=== PATIENT | male | born 1970 | race Caucasian/White ===

== ENCOUNTER → 2019-05-18 09:31 | Outpatient (CLI) | payer OTHER, SELFPAY ==
[2019-05-18 12:15] LABS: Absolute Lymphocyte Count 1.94 X10^3/uL (0.83-4.51); Absolute Neutrophil Count 2.7 X10^3/uL (2.0-7.7); Basophil# 0.03 X10^3/uL; Basophil% 0.6 % (0-1); Eosinophil# 0.07 X10^3/uL; Eosinophils% 1.3 % (0-5); Hematocrit 47.6 % (40-54); Hemoglobin 15.6 g/dL (13.0-16.5); Lymphocyte # 1.94 X10^3/ul (4.0); Lymphocyte % 36.6 % (19-41); Mean Corp Hgb Conc 32.8 g/dL (32-36); Mean Corpuscular Hgb 29.9 pg (27.0-32.0); Mean Corpuscular Volume 91.2 fL (80-94); Mean Platelet Vol. 10.4 fl (6.2-12.0); Monocyte# 0.54 X10^3/uL; Monocyte% 10.2 % (0-10); NRBC Flagged by Analyzer 0 % (0-5); Neutrophil # 2.71 X10^3/uL (2.7-7.7); Neutrophil % 51.1 % (47-70); Platelet Count 259 K/mm3 (150-450); RBC Distribution Width CV 13.2 % (11.6-14.6); RBC Distribution Width SD 44.2 fl (35.1-43.9); Red Blood Count 5.22 M/mm3 (4.6-6.2); White Blood Count 5.3 K/mm3 (4.4-11.0)
[2019-05-18 12:43] LABS: ALB/GLOB Ratio 1.2 RATIO (0.9-2.4); AST(SGOT) 39 U/L (15-37); Alanine Aminotransfer ALT/SGPT 39 U/L (16-61); Albumin, Serum 4.2 g/dL (3.2-5.0); Alkaline Phosphatase 58 U/L (45-117); Anion Gap 6 (5-15); BUN 19 mg/dL (7-18); BUN/Creat Ratio 18.6 RATIO (10-20); Calcium,Total 9.1 mg/dL (8.5-10.1); Chloride 110 mmol/L (98-107); Cholesterol 185 mg/dL (200); Creatinine, Serum 1.02 mg/dL (0.70-1.30); EST Glomerular Filtration Rate 83 mL/min (>60); Est Glom Filt Rate - Afr Amer 100 mL/min (>60); Globulin 3.5 g/dL (2.2-4.2); Glucose 90 mg/dL (74-106); High Density Lipoprotein 57 mg/dL; Potassium 4.4 mmol/L (3.5-5.1); Protein, Total 7.7 g/dL (6.4-8.2); Sodium Level 143 mmol/L (136-145); Thyroid Stim Hormone (TSH) 1.98 uIU/mL (0.358-3.74); Triglycerides 114 mg/dL; Very Low Density Lipoprotein 23 mg/dL (5-40)
== END ==
PROVIDERS: PCP Family Medicine; Referring Provider Family Medicine; Visit Provider Family Medicine
DX: Z00.00 Encounter for general adult medical examination without abnormal findings (principal)
CPT/HCPCS: 36415; 80053; 80061; 84443; 85025

== ENCOUNTER → 2021-07-08 | Outpatient (CLI) | payer OTHER, SELFPAY ==
[2021-07-08 10:20] LABS: Absolute Neutrophil Count 2.8 X10^3/uL (2.0-7.7); Basophil# 0.03 X10^3/uL; Basophil% 0.6 % (0-1); Eosinophil# 0.11 X10^3/uL; Eosinophils% 2.1 % (0-5); Hematocrit 47.7 % (40-54); Hemoglobin 16.2 g/dL (13.0-16.5); Lymphocyte % 32.7 % (19-41); Mean Corpuscular Hgb 30.7 pg (27.0-32.0); Mean Corpuscular Volume 90.3 fL (80-94); Mean Platelet Vol. 10.6 fl (6.2-12.0); Monocyte# 0.52 X10^3/uL; NRBC Flagged by Analyzer 0 % (0-5); Neutrophil # 2.83 X10^3/uL (2.7-7.7); Neutrophil % 54.4 % (47-70); Platelet Count 253 K/mm3 (150-450); RBC Distribution Width CV 12.7 % (11.6-14.6); RBC Distribution Width SD 41.7 fl (35.1-43.9); Red Blood Count 5.28 M/mm3 (4.6-6.2); White Blood Count 5.2 K/mm3 (4.4-11.0)
[2021-07-08 10:54] LABS: ALB/GLOB Ratio 1.2 RATIO (0.9-2.4); AST(SGOT) 19 U/L (15-37); Alanine Aminotransfer ALT/SGPT 23 U/L (16-61); Alkaline Phosphatase 61 U/L (45-117); Anion Gap 6 (5-15); BUN 19 mg/dL (7-18); BUN/Creat Ratio 17.8 RATIO (10-20); Chloride 110 mmol/L (98-107); Cholesterol 152 mg/dL (200); Creatinine, Serum 1.07 mg/dL (0.70-1.30); EST Glomerular Filtration Rate 78 mL/min (>60); Est Glom Filt Rate - Afr Amer 94 mL/min (>60); Globulin 3.2 g/dL (2.2-4.2); Glucose 111 mg/dL (74-106); High Density Lipoprotein 51 mg/dL; Potassium 3.8 mmol/L (3.5-5.1); Protein, Total 7.2 g/dL (6.4-8.2); Sodium Level 142 mmol/L (136-145); Thyroid Stim Hormone (TSH) 1.43 uIU/mL (0.358-3.74); Triglycerides 119 mg/dL; Very Low Density Lipoprotein 24 mg/dL (5-40)
[2021-07-09 11:48] LABS: Hemoglobin A1c 5.5 % (3.8-5.6)
== END | disposition home or self-care (01) ==
LOC: MTLAB 08:55
PROVIDERS: PCP Family Medicine; Referring Provider Family Medicine; Visit Provider Family Medicine
DX: Z00.00 Encounter for general adult medical examination without abnormal findings (principal); R73.09 Other abnormal glucose
CPT/HCPCS: 36415; 80053; 80061; 83036; 84443; 85025

== ENCOUNTER 2021-09-09 06:56 | Day surgery (SDC) | payer OTHER, SELFPAY ==
[2021-09-09] VITALS (10 sets, daily range): BP systolic 106–120; BP diastolic 72–91; PULSE 62–77; RESP 14–16; TEMP 36.3–36.8; O2SAT 94–100; BMI 27.9
--- NOTE | 2021-09-09 07:39 | HP.PCM_ITS ---
[facility] - General General Date of Service: 09/09/21 Chief Complaint: Screening for intestinal cancer HPI Narrative ELDA ISSA, is a 51 M who presents who presents via open access for screening colonoscopy today. He has not had one for multiple years. This is age 51 screening event. No abdominal pain. No bright red blood per rectum or melena. No family history of colon cancer. He presents via open access today. [facility] Medical History (Updated 09/04/21 @ 12:27 by Erica Bond) Non-smoker Seasonal allergies Wears glasses Home Medications loratadine 10 mg tablet (Claritin) 10 mg PO DAILY 07/22/21 [History Last Taken Unknown] Allergy/AdvReac Type Severity Reaction Status Date / Time pollen Allergy Intermediate runny Uncoded 09/09/21 07:24 eyes,nose Family History (Updated 07/22/21 @ 14:10 by Shanon Cadena) Mother Hypertension Surgical History (Updated 07/22/21 @ 14:09 by Shanon Cadena) History of cholecystectomy History of left inguinal hernia repair Social History (Updated 07/22/21 @ 14:15 by Shanon Cadena) household members: spouse and children current occupational status: employed Smoking Status: Never smoker substance use type: does not use ROS Constitutional Constitutional: Reports systems reviewed and no addt'l complaints, except as documented Cardiovascular Cardiovascular: Denies chest pain Respiratory/Chest Respiratory/Chest: Denies shortness of breath at rest Gastrointestinal Gastrointestinal: Denies abdominal pain, change in bowel habits, hematochezia or melena Vital Signs Vital Signs Vital Signs: 09/09/21 07:25 09/09/21 07:25 Temperature 97.4 F L Temperature Source Temporal Pulse Rate 73 Respiratory Rate 16 Respiratory Pattern Normal Blood Pressure 114/72 Blood Pressure Mean 86 Blood Pressure Source Monitor Blood Pressure Position Semi-Fowlers Blood Pressure Location Left Arm Pulse Ox 97 Oxygen Delivery Method Room Air Weight Weight: 167 lb 12.348 oz Body Mass Index (BMI) 27.9 Physical Exam Const alert, oriented x3 and no apparent distress General Appearance: cooperative and comfortable Eyes General Eye: normal appearance of both eyes Neck General: normal visual inspection Chest inspection of chest normal Resp Effort and Inspection: able to speak in complete sentences and symmetric chest movement Auscultation: clear to auscultation bilaterally Cardio regular rate and regular rhythm GI soft to palpation, non-tender and non-distended Extremity no calf tenderness Neuro oriented x3 Psych thought process normal Assessment & Plan Assessment/Plan (1) Encounter for screening for malignant neoplasm of colon: PLAN: Plan to proceed with a screening colonoscopy today with possible biopsy or polypectomy as indicated. He is aware of the technique, benefit, risk, alternatives. He has had an opportunity to ask and have questions answered. He presents via open access. We will proceed as noted. Conrad Demarco M.D., F.A.C.S.
[2021-09-09] MEDS: Lactated Ringers 1,000 ML 15 ML IV (07:46)
[2021-09-09] MEDS: Midazolam 5 MG/ML Syringe (08:20)
[2021-09-09] MEDS: DiphenhydrAMINE 50 MG/ML Syringe (08:20)
--- NOTE | 2021-09-09 08:38 | OP.COLON_ITS ---
Patient Name: Sam Sen Procedure Date: 09/09/2021 8:16 AM Date of : 1970 Age: 51 Procedure: Colonoscopy Indications: Screening for colorectal malignant neoplasm Providers: Conrad Demarco MD Medicines: Midazolam 3 mg IV, Meperidine 100 mg IV, Diphenhydramine 12.5 mg IV Patient Profile: Last Colonoscopy: more than 10 years ago. Complications: No immediate complications. Procedure: Pre-Anesthesia Assessment: - Prior to the procedure, a History and Physical was performed, and patient medications and allergies were reviewed. The patient's tolerance of previous anesthesia was also reviewed. The risks and benefits of the procedure and the sedation options and risks were discussed with the patient. All questions were answered, and informed consent was obtained. Prior Anticoagulants: The patient has taken no previous anticoagulant or antiplatelet agents. ASA Grade Assessment: II - A patient with mild systemic disease. After reviewing the risks and benefits, the patient was deemed in satisfactory condition to undergo the procedure. After I obtained informed consent, the scope was passed under direct vision. Throughout the procedure, the patient's blood pressure, pulse, and oxygen saturations were monitored continuously. The Colonoscope was introduced through the anus and advanced to the cecum, identified by appendiceal orifice and ileocecal valve. The colonoscopy was performed without difficulty. The patient tolerated the procedure well. The quality of the bowel preparation was good. The ileocecal valve and the appendiceal orifice were photographed. Moderate Sedation: Moderate (conscious) sedation was personally administered by the endoscopist. The following parameters were monitored: oxygen saturation, heart rate, blood pressure, and response to care. Total physician intraservice time was 15 minutes. Scope In: 8:23:10 AM Scope Withdrawal Time 0 hours 8 minutes 2 seconds Scope Out: 8:34:25 AM Total Procedure Duration Time 0 hours 11 minutes 15 seconds Findings: The digital rectal exam findings include non-thrombosed internal hemorrhoids and internal hemorrhoids that prolapse with straining, but spontaneously regress to the resting position (Grade II). Pertinent negatives include normal prostate (size, shape, and consistency). Scattered diverticula were found in the sigmoid colon. The exam was otherwise without abnormality. Impression: - Non-thrombosed internal hemorrhoids and internal hemorrhoids that prolapse with straining, but spontaneously regress to the resting position (Grade II) found on digital rectal exam. - Diverticulosis in the sigmoid colon. - The examination was otherwise normal. - No specimens collected. Recommendation: - Discharge patient to home. - Resume previous diet. - Continue present medications. - Repeat colonoscopy in 10 years for screening purposes. Procedure Code(s): --- Professional --- 26215, Colonoscopy, flexible; diagnostic, including collection of specimen(s) by brushing or washing, when performed (separate procedure) 43752, 59, Moderate sedation services provided by the same physician or other qualified health child caregiver private home performing the diagnostic or therapeutic service that the sedation supports, requiring the presence of an independent trained observer to assist in the monitoring of the patient's level of consciousness and physiological status; initial 15 minutes of intraservice time, patient age 5 years or older Diagnosis Code(s): --- Professional --- Z12.11, Encounter for screening for malignant neoplasm of colon K64.1, Second degree hemorrhoids K57.30, Diverticulosis of large intestine without perforation or abscess without bleeding CPT copyright 2017 [employer]. All rights reserved. The codes documented in this report are preliminary and upon saddle stitcher review may be revised to meet current compliance requirements. Conrad Demarco MD 09/09/2021 8:38:30 AM This report has been signed electronically. Number of Addenda: 0 Note Initiated On: 09/09/2021 8:16 AM
--- NOTE | 2021-09-09 08:39 | OP.CCLET_ITS ---
09/09/2021 Kris Burnham [address] [place] [address] Re : Colonoscopy procedure for Sam Sen Dear Dr. Burnham This procedure was performed on Thursday, September 09, 2021. My impressions and recommendations are as follows: Impressions : - Non-thrombosed internal hemorrhoids and internal hemorrhoids that prolapse with straining, but spontaneously regress to the resting position (Grade II) found on digital rectal exam. - Diverticulosis in the sigmoid colon. - The examination was otherwise normal. - No specimens collected. Recommendations : - Discharge patient to home. - Resume previous diet. - Continue present medications. - Repeat colonoscopy in 10 years for screening purposes. My findings are described in the full procedure note, which is enclosed. If I can be of further assistance, please feel free to contact me at Doctor phone number(s): Work: . Sincerely, Conrad Demarco MD 09/09/2021 8:38:30 AM This report has been signed electronically.
== END 2021-09-09 09:24 | disposition home or self-care (01) ==
LOC: EN 07:01 → AC 07:01
PROVIDERS: PCP Family Medicine; Referring Provider Family Medicine; Visit Provider Surgery
PROC: 0DJD8ZZ Inspection of Lower Intestinal Tract, Via Natural or Artificial Opening Endoscopic (ICD-10-PCS; CPT 45378; principal; 2021-09-09 07:55)
DX: Z12.11 Encounter for screening for malignant neoplasm of colon (principal); K64.1 Second degree hemorrhoids; K57.30 Diverticulosis of large intestine without perforation or abscess without bleeding
CPT/HCPCS: 45378; 99152; 99153; J7120

== ENCOUNTER 2022-12-22 01:15 | Emergency (ER) | payer OTHER, SELFPAY ==
[2022-12-22 01:16] VITALS: BP 137/94; PULSE 75; RESP 20; TEMP 35.7; O2SAT 99; BMI 29.5
--- NOTE | 2022-12-22 01:31 | CT_ITS ---
INDICATION: Kidney Stone. Right flank pain tonight. EXAMINATION: CT ABDOMEN AND PELVIS WITHOUT CONTRAST TECHNIQUE: Helically acquired images were obtained of the abdomen and pelvis without IV contrast. 2-D reconstructions reviewed. A radiation dose optimization technique was used for this scan. IV Contrast dosage and agent: None Oral contrast: None COMPARISON: None. FINDINGS: LOWER CHEST: No acute findings within the imaged lung bases. Heart size within normal limits. LIVER: Small simple cyst within posterior right lobe requiring no additional follow-up. No concerning lesion. GALLBLADDER AND BILIARY TREE: Status post cholecystectomy. No significant biliary ductal dilation. PANCREAS: No discrete mass or peripancreatic edema. SPLEEN: Normal size without discrete mass. ADRENAL GLANDS: Unremarkable. KIDNEYS AND URETERS: Tiny 1 to 2 mm stones within lower pole right kidney. Mild right hydronephrosis and proximal hydroureter secondary to 3.5 mm craniocaudal length proximal ureteral stone. No discrete renal mass. PERITONEUM: No significant free peritoneal fluid. No free air detected. RETROPERITONEUM: No retroperitoneal mass or pathologic fluid collection. BOWEL: No evidence of acute appendicitis. No bowel obstruction or significant bowel thickening. Scattered colonic diverticula. No focal inflammatory change. LYMPH NODES: No enlarged mesenteric or retroperitoneal lymph nodes. VESSELS: No acute findings. No abdominal aortic aneurysm. URINARY BLADDER: Unremarkable as visualized. REPRODUCTIVE ORGANS: No pelvic masses. ABDOMINAL WALL: Small bilateral inguinal fat hernias. BONES: Chronic bilateral L5 pars defects with secondary grade 1 anterolisthesis of L5 over S1. CT/Abdomen/Pelvis without Cont IMPRESSION: 1. Right nephrolithiasis with mild obstructive uropathy secondary to 3.5 mm proximal ureteral stone. 2. Mild colonic diverticulosis with no evidence of diverticulitis. 3. Other nonurgent findings within body of report. Electronically Signed: Prakash Way MD at 2:51 EST ,
--- NOTE | 2022-12-22 01:34 | EX.ED.GUMALE ---
HPI History of Present Illness Chief Complaint: Flank Pain Informant: patient Narrative Narrative: Sudden right-sided flank pain rating to the testicles 90 minutes prior to arrival. No nausea or vomiting. Has not urinated since the pain. There is no prior dysuria. No fevers. No history of kidney stones. Denies any allergies. Denies history of kidney disease. Prior similar symptoms: No PFSH PFSH Medical History Non-smoker Seasonal allergies Wears glasses Home Medications loratadine 10 mg tablet (Claritin) 10 mg PO DAILY 07/22/21 [History Last Taken Unknown] ciprofloxacin HCl 500 mg tablet 500 mg PO BID #14 TABLETS 12/22/22 [Rx Last Taken Unknown] clobetasol 0.05 % scalp solution 1 applic topical DAILY 12/22/22 [History Last Taken Unknown] ibuprofen 600 mg tablet 600 mg PO Q6H PRN PRN pain #20 TABLETS 12/22/22 [Rx Last Taken Unknown] ondansetron 4 mg disintegrating tablet 4 mg PO Q8H PRN PRN Nausea #10 tabs 12/22/22 [Rx Last Taken Unknown] oxycodone-acetaminophen 5 mg-325 mg tablet 1 tab PO Q6H PRN PRN Pain 3 days #12 TABLETS 12/22/22 [Rx Last Taken Unknown] tamsulosin 0.4 mg capsule 0.4 mg PO DAILY #7 CAPSULES 12/22/22 [Rx Last Taken Unknown] triamcinolone acetonide 0.1 % topical ointment 1 applic topical BID 12/22/22 [History Last Taken Unknown] Allergy/AdvReac Type Severity Reaction Status Date / Time pollen extracts Allergy Intermediate Other Verified 12/22/22 01:20 Family History (Updated 07/22/21 @ 14:10 by Shanon Cadena) Mother Hypertension Surgical History History of cholecystectomy History of left inguinal hernia repair Social History (Updated 07/22/21 @ 14:15 by Shanon Cadena) household members: spouse and children current occupational status: employed Smoking Status: Never smoker substance use type: does not use ROS ROS ED Constitutional Constitutional ED: Denies chills, fever(s) or sweats Eyes Eyes: Denies change in vision ENT ENT ED: Denies dysphagia or sore throat Cardiovascular Cardiovascular: Denies chest pain, leg edema, palpitations or racing heartbeat Respiratory/Chest Respiratory/Chest: Denies cough, dyspnea or dyspnea on exertion Gastrointestinal Gastrointestinal: Denies abdominal pain, diarrhea, nausea or vomiting Genitourinary Genitourinary ED: Denies dysuria, hematuria or urinary frequency Musculoskeletal Musculoskeletal: Reports back pain; Denies extremity pain or neck pain Integumentary Denies rash or wounds Neurologic Neurologic: Denies headache(s), paresthesias or weakness EXAM Physical Exam Const Vital Signs: 12/22/22 01:16 12/22/22 03:15 Temperature 96.3 F L Temperature Source Temporal Pulse Rate 75 92 Respiratory Rate 20 H 16 Blood Pressure 137/94 H 133/84 H Blood Pressure Mean 108 100 Pulse Ox 99 98 Oxygen Delivery Method Room Air Room Air Positive well nourished and well developed Constitutional Narrative: Uncomfortable unable to lay still in bed. General Appearance ED: well developed HEENT Reports moist mucous membranes normocephalic and atraumatic Eyes PERRL, EOMs intact bilaterally and conjunctivae normal General Eye ED: Yes normal appearance of both eyes Neck no lymphadenopathy and supple General: Negative for tenderness Chest Wall Chest: Negative for tenderness Resp normal respiratory effort and normal air movement Effort and Inspection: symmetric chest movement; Negative for respiratory distress Cardio regular rate, regular rhythm and no murmurs Peripheral Pulses: pulses 2+ throughout GI normal to inspection, nondistended, normoactive bowel sounds and non-tender Palpation: Negative for guarding or rebound tenderness present Back/Spine no CVA tenderness and no thoracic nor lumbar tenderness Back/Spine Narrative: No rash. Extremity normal to inspection General Extremety ED: Negative for edema or tenderness General Extremity: Negative for edema Neuro oriented x3 and no sensory deficits noted Sensorium / Orientation: awake and alert Skin no rashes or lesions noted and no wounds MDM MDM MDM Narrative Medical decision making narrative: Interventions / MDM: Differential diagnosis: Diagnosis considered but do not suspect: N/A My EKG interpretation: N/A Imaging independently reviewed and interpreted by myself: CT abdomen pelvis: Right mid ureteral stent with hydroureter and periureteral stranding stone proximally to 3 mm. External documents reviewed: N/A Test considered but not ordered:N/A ED course: Vital stable presenting with renal colic symptoms. Renal stone protocol initiated. IV established. Morphine Toradol Zofran and fluids started. CT scan with basic labs and urine. 0225: Pain more controlled at this time. Her white point to creatinine 1.2. Your notes blood, 25 leukocytes with 1+ bacteria. Urine culture sent. Review of CT scan notes a mid ureteral cyst stone. Awaiting final read. Rocephin IV ordered for antibiotics. 0305: Pain a lot more controlled. CT scan read by radiology 3.5 mm ureteral stone. Pain reported 5 out of 10. Will redose pain medicines. Patient also started on Flomax. Pain controlled with medications. Urine strainer sent home with patient. Meds to bed with prescriptions for symptom control while antibiotics. Discussed strict return precautions the patient otherwise given outpatient follow-up with urology. All questions were answered. Re-evaluation: stable Disposition discussed with patient/family/significant other: Patient Case discussed with consulting clinician: N/A This note was generated with [employer] dictation software. It may contain incorrect words, spelling, and punctuation that were not noted in checking the note before signing. Lab Data Attestation: I reviewed the patient's lab results. Labs: Laboratory Results - last 24 hr 12/22/22 12/22/22 01:20 01:57 WBC 12.2 H RBC 4.95 Hgb 15.1 Hct 44.9 MCV 90.7 MCH 30.5 MCHC 33.6 RDW Std Deviation 45.3 H RDW Coeff of Kristian 13.7 Plt Count 310 MPV 10.3 Immature Gran % (Auto) 0.200 Neut % (Auto) 31.7 L Lymph % (Auto) 56.7 H [place] % (Auto) 9.4 Eos % (Auto) 1.3 Baso % (Auto) 0.7 Absolute Neuts (auto) 3.9 Absolute Lymphs (auto) 6.90 H Nucleated RBC % 0 Differential Comment SCANNED Atypical Lymphocytes 3+ Reactive Lymphocytes 3+ Plt Morphology Comment BIZARRE Sodium 144 Potassium 3.2 L Chloride 109 H Carbon Dioxide 26.0 Anion Gap 9 BUN 15 Creatinine 1.22 Estim Creat Clear Calc 62.31 Est GFR (MDRD) Af Amer 80 Est GFR (MDRD) Non-Af 66 BUN/Creatinine Ratio 12.3 Glucose 136 H Calcium 8.8 Urine Color Yellow Urine Clarity Cloudy Urine pH 6.0 Ur Specific [place] 1.025 Urine Protein 30 H Urine Glucose (UA) Normal Urine Ketones Negative Urine Occult Blood 250 H Urine Nitrite Negative Urine Bilirubin Negative Urine Urobilinogen Normal Ur Leukocyte Esterase 25 H Urine RBC > 100 SEEN Urine WBC 0-5 SEEN Ur Squamous Epith Cells 0 SEEN Urine Bacteria 1+ Urine Mucus 0 SEEN Radiography Diagnostic Testing: Clinical Impression(s) from Imaging Studies Abdomen/Pelvis CT 12/22/22 01:31 IMPRESSION: 1. Right nephrolithiasis with mild obstructive uropathy secondary to 3.5 mm proximal ureteral stone. 2. Mild colonic diverticulosis with no evidence of diverticulitis. 3. Other nonurgent findings within body of report. Electronically Signed: Prakash Way MD at 2:51 EST , Discharge Plan Triage Chief Complaint: Flank Pain ED Provider: Florentin Head Dx/Rx/DC Orders Clinical Impression: Hematuria, Acute UTI, Renal colic on right side, Kidney stone on right side Instructions: Understanding Kidney Stones, ED Kidney Stone w/ Colic Prescriptions: New ciprofloxacin HCl [ciprofloxacin HCl] 500 mg tablet 500 mg PO BID Qty: 14 0RF ibuprofen 600 mg tablet 600 mg PO Q6H PRN PRN (Reason: pain) Qty: 20 0RF oxycodone-acetaminophen [oxycodone-acetaminophen] 5-325 mg tablet 1 tab PO Q6H PRN PRN (Reason: Pain) 3 Days Qty: 12 0RF tamsulosin [tamsulosin] 0.4 mg capsule 0.4 mg PO DAILY Qty: 7 0RF ondansetron [ondansetron] 4 mg tablet,disintegrating 4 mg PO Q8H PRN PRN (Reason: Nausea) Qty: 10 0RF No Action loratadine [Claritin] 10 mg tablet 10 mg PO DAILY clobetasol 0.05 % solution 1 applic TOPICAL DAILY triamcinolone acetonide 0.1 % ointment 1 applic TOPICAL BID Stand Alone Forms: ED Work / School Excuse Primary Care Provider: Kris Burnham Referrals: Audi Vizcaino MD [Med Staff - Active Staff] - 3-5 Days Kris Burnham MD [Primary Care Provider] - Activity Restrictions/Additional Instructions: 3.5 mm ureteral stone on right side noted. Mild urine infection. Take medications as prescribed. If symptoms worsen not controlled medications redeveloped fevers, return immediately to the emergency department. Otherwise follow-up with urology as an outpatient. Disposition Disposition: Home, Self Care Discharge Date/Time: 12/22/22 04:53
[2022-12-22] MEDS: Morphine 4 MG/ML Syringe IV ×2 (01:38→03:18)
[2022-12-22] MEDS: Ondansetron 4 MG/2 ML Vial IV (01:39)
[2022-12-22] MEDS: Ketorolac 15 MG/ML Vial IV (01:39)
[2022-12-22 01:40] LABS: Absolute Neutrophil Count 3.9 X10^3/uL (2.0-7.7); Basophil# 0.08 X10^3/uL; Basophil% 0.7 % (0-1); Eosinophil# 0.16 X10^3/uL; Eosinophils% 1.3 % (0-5); Hematocrit 44.9 % (40-54); Hemoglobin 15.1 g/dL (13.0-16.5); Lymphocyte % 56.7 % (19-41); Mean Corp Hgb Conc 33.6 g/dL (32-36); Mean Corpuscular Hgb 30.5 pg (27.0-32.0); Mean Corpuscular Volume 90.7 fL (80-94); Mean Platelet Vol. 10.3 fl (6.2-12.0); Monocyte# 1.14 X10^3/uL; Monocyte% 9.4 % (0-10); NRBC Flagged by Analyzer 0 % (0-5); Neutrophil # 3.85 X10^3/uL (2.7-7.7); Neutrophil % 31.7 % (47-70); POSITIVE DIFFERENTIAL YES; POSITIVE MORPHOLOGY YES; Platelet Count 310 K/mm3 (150-450); RBC Distribution Width CV 13.7 % (11.6-14.6); RBC Distribution Width SD 45.3 fl (35.1-43.9); Red Blood Count 4.95 M/mm3 (4.6-6.2); White Blood Count 12.2 K/mm3 (4.4-11.0)
[2022-12-22 01:41] LABS: Differential Indicated SCAN CRITERIA MET
[2022-12-22] MEDS: 0.9% Normal Saline (1000mL) 1,000 ML 250 ML IV (01:50)
[2022-12-22 01:53] LABS: Anion Gap 9 (5-15); BUN 15 mg/dL (7-18); BUN/Creat Ratio 12.3 RATIO (10-20); Calcium,Total 8.8 mg/dL (8.5-10.1); Chloride 109 mmol/L (98-107); Creatinine, Serum 1.22 mg/dL (0.70-1.30); EST Glomerular Filtration Rate 66 mL/min (>60); Est Glom Filt Rate - Afr Amer 80 mL/min (>60); Estimated Creatinine Clearance 62.31 ml/min; Glucose 136 mg/dL (74-106); Potassium 3.2 mmol/L (3.5-5.1); Sodium Level 144 mmol/L (136-145)
[2022-12-22 02:03] LABS: Mucous, Urine 0 SEEN /hpf (<or=2+); Squamous Epithelial Cells - UA 0 SEEN /hpf (0-5)
[2022-12-22 02:05] LABS: Color, Urine Yellow (Yellow); Glucose, Dipstick Normal (Normal); Ketone-Dipstick Negative (Negative); Leukocyte Esterase-Dipstick 25 /ul (Negative); Nitrite-Dipstick Negative (Negative); Occult Blood-Urine 250 /ul (Negative); Protein-Dipstick 30 mg/dl (Negative); Specific Gravity, Urine 1.025 (1.002-1.030); Urine Bilirubin Dipstick Negative (Negative); Urine Clarity Cloudy (Clear); Urine Urobilinogen Normal (Normal)
[2022-12-22 02:15] LABS: Red Blood Cells-Urine > 100 SEEN /hpf (0-5); White Blood Cells 0-5 SEEN /hpf (0-5)
[2022-12-22 02:16] LABS: Bacteria 1+ /hpf (None Seen)
[2022-12-22] MEDS: Ceftriaxone 1 GM/50 ML BAG IV (02:52)
[2022-12-22 03:15] VITALS: BP 133/84; PULSE 92; RESP 16; O2SAT 98
[2022-12-22] MEDS: Tamsulosin HCl 0.4 MG Capsule PO (03:18)
[2022-12-22 03:20] LABS: Atypical Lymphocyte 3+ %; Differential Comment SCANNED; Reactive Lymphocyte 3+
[2022-12-23 10:00] LABS: Pathologist Review Reviewed
== END 2022-12-22 04:53 | disposition home or self-care (01) ==
PROVIDERS: Emergency Provider Emergency Medicine; PCP Family Medicine; Visit Provider Emergency Medicine
DX: N13.6 Pyonephrosis (principal)
CPT/HCPCS: 74176; 80048; 81001; 85025; 87077; 87086; 87088; 99283; J7030; A4216; J2405

== ENCOUNTER → 2022-12-25 | Outpatient (CLI) | payer OTHER, SELFPAY ==
--- NOTE | 2022-12-25 15:50 | RAD_ITS ---
INDICATION: KIDNEY STONE EXAMINATION/TECHNIQUE: X-RAY - XR Abdomen 1 View COMPARISON: CT 12/22/2022 FINDINGS: BOWEL GAS PATTERN: Non-obstructive. No bowel or stomach distention. There is moderate amount of obscuring bowel gas. FREE AIR: Not assessed on a single supine view. ORGANOMEGALY: Not seen. CALCIFICATIONS: Previously described calcification within the abdominal ureter on the RIGHT is not visualized on current exam, however may be obscured by bowel gas LOWER CHEST: No acute pathology. BONES AND SOFT TISSUES: No acute pathology. RAD/Abdomen Single View IMPRESSION: 1. Moderate amount of obscuring bowel gas. 2. No renal or ureteral calcifications identified. Electronically Signed: Aidan Barron MD at 20:33 EST ,
== END | disposition home or self-care (01) ==
LOC: MTRAD 15:48
PROVIDERS: PCP Family Medicine; Referring Provider Family Medicine; Visit Provider Family Medicine
DX: N20.0 Calculus of kidney (principal)
CPT/HCPCS: 74018

== ENCOUNTER → 2023-07-27 | Outpatient (CLI) | payer OTHER, SELFPAY ==
[2023-07-27 16:45] LABS: Bacteria 0 SEEN /hpf (None Seen); Mucous, Urine 0 SEEN /hpf (<or=2+); Red Blood Cells-Urine 0 SEEN /hpf (0-5); Squamous Epithelial Cells - UA 0 SEEN /hpf (0-5); White Blood Cells 0 SEEN /hpf (0-5)
[2023-07-27 17:42] LABS: Absolute Neutrophil Count 3.4 X10^3/uL (2.0-7.7); Basophil# 0.06 X10^3/uL; Basophil% 0.8 % (0-1); Eosinophil# 0.13 X10^3/uL; Eosinophils% 1.8 % (0-5); Hematocrit 46.4 % (40-54); Hemoglobin 15.7 g/dL (13.0-16.5); Lymphocyte % 42.1 % (19-41); Mean Corp Hgb Conc 33.8 g/dL (32-36); Mean Corpuscular Hgb 30.4 pg (27.0-32.0); Mean Corpuscular Volume 89.7 fL (80-94); Mean Platelet Vol. 9.9 fl (6.2-12.0); Monocyte# 0.64 X10^3/uL; Monocyte% 8.7 % (0-10); NRBC Flagged by Analyzer 0 % (0-5); Neutrophil # 3.42 X10^3/uL (2.7-7.7); Neutrophil % 46.3 % (47-70); Platelet Count 292 K/mm3 (150-450); RBC Distribution Width CV 13.6 % (11.6-14.6); RBC Distribution Width SD 44.4 fl (35.1-43.9); Red Blood Count 5.17 M/mm3 (4.6-6.2); White Blood Count 7.4 K/mm3 (4.4-11.0)
[2023-07-27 18:02] LABS: Color, Urine Yellow (Yellow); Glucose, Dipstick Normal (Normal); Ketone-Dipstick Negative (Negative); Leukocyte Esterase-Dipstick Negative /ul (Negative); Nitrite-Dipstick Negative (Negative); Occult Blood-Urine Negative /ul (Negative); Protein-Dipstick Negative (Negative); Specific Gravity, Urine 1.025 (1.002-1.030); Urine Bilirubin Dipstick Negative (Negative); Urine Clarity Clear (Clear); Urine Urobilinogen Normal (Normal)
[2023-07-27 18:23] LABS: ALB/GLOB Ratio 1.1 RATIO (0.9-2.4); AST(SGOT) 46 U/L (15-37); Alanine Aminotransfer ALT/SGPT 47 U/L (16-61); Alkaline Phosphatase 54 U/L (45-117); Anion Gap 5 (5-15); BUN 15 mg/dL (7-18); BUN/Creat Ratio 15.6 RATIO (10-20); Calcium,Total 8.9 mg/dL (8.5-10.1); Chloride 110 mmol/L (98-107); Cholesterol 180 mg/dL (200); Creatinine, Serum 0.96 mg/dL (0.70-1.30); EST Glomerular Filtration Rate 88 mL/min (>60); Est Glom Filt Rate - Afr Amer 106 mL/min (>60); Globulin 3.6 g/dL (2.2-4.2); Glucose 83 mg/dL (74-106); High Density Lipoprotein 52 mg/dL; Potassium 3.7 mmol/L (3.5-5.1); Protein, Total 7.6 g/dL (6.4-8.2); Sodium Level 140 mmol/L (136-145); Triglycerides 89 mg/dL; Very Low Density Lipoprotein 18 mg/dL (5-40)
== END | disposition home or self-care (01) ==
LOC: MTLAB 16:42
PROVIDERS: PCP Family Medicine; Referring Provider Family Medicine; Visit Provider Family Medicine
DX: Z00.00 Encounter for general adult medical examination without abnormal findings (principal)
CPT/HCPCS: 36415; 80053; 80061; 81001; 84443; 85025

== ENCOUNTER → 2023-07-30 | Outpatient (CLI) | payer OTHER, SELFPAY ==
[2023-07-30 11:14] LABS: Hepatitis B Surface Antibody Non-Reactive; Hepatitis B Surface Antigen Non-Reactive (Nonreactive); Hepatitis C Antibody Non-Reactive (Nonreactive)
== END | disposition home or self-care (01) ==
LOC: MTLAB 07:19
PROVIDERS: PCP Family Medicine; Referring Provider Family Medicine; Visit Provider Family Medicine
DX: R79.89 Other specified abnormal findings of blood chemistry (principal)
CPT/HCPCS: 36415; 86706; 86803; 87340

== ENCOUNTER → 2023-10-07 | Outpatient (CLI) | payer OTHER, SELFPAY ==
--- NOTE | 2023-10-07 10:39 | RAD_ITS ---
STUDY: X-RAY - RIGHT WRIST REASON FOR EXAM: Male, 53 years old. Pain. Patient fell 4 months ago. TECHNIQUE: 3 views of the right wrist were obtained. COMPARISON: None. FINDINGS: Normal visualized distal radius and ulna. Normal radiocarpal articulation. Normal distal radioulnar articulation. Normal carpal bones. Normal carpal articulations. Normal carpometacarpal articulation of the thumb. Normal second through fifth carpometacarpal articulations. Normal visualized metacarpal bones. The soft tissue structures are unremarkable. There is no demonstrated acute fracture. RAD/Wrist min 3 Views IMPRESSION: Normal x-ray examination of the right wrist. Electronically Signed: Jose Luis Snell MD at 11:32 EDT ,
--- NOTE | 2023-10-07 10:40 | RAD_ITS ---
STUDY: X-RAY - LEFT WRIST REASON FOR EXAM: Male, 53 years old. Pain. Patient fell 4 months ago. TECHNIQUE: 3 views of the left wrist were obtained. COMPARISON: None. FINDINGS: Normal visualized distal radius and ulna. Normal radiocarpal articulation. Normal distal radioulnar articulation. Normal carpal bones. Normal carpal articulations. Normal carpometacarpal articulation of the thumb. Normal second through fifth carpometacarpal articulations. Normal visualized metacarpal bones. The soft tissue structures are unremarkable. There is no demonstrated acute fracture. RAD/Wrist min 3 Views IMPRESSION: Normal x-ray examination of the left wrist. Electronically Signed: Jose Luis Snell MD at 11:33 EDT ,
== END | disposition home or self-care (01) ==
PROVIDERS: PCP Family Medicine; Referring Provider Family Medicine; Visit Provider Family Medicine
DX: M25.531 Pain in right wrist (principal); M25.532 Pain in left wrist
CPT/HCPCS: 73110

== ENCOUNTER → 2024-01-11 | Outpatient (CLI) | payer OTHER, SELFPAY ==
[2024-01-11 15:28] LABS: Absolute Lymphocyte Count 2.43 X10^3/uL (0.83-4.51); Absolute Neutrophil Count 4.6 X10^3/uL (2.0-7.7); Basophil# 0.03 X10^3/uL; Basophil% 0.4 % (0-1); Eosinophil# 0.05 X10^3/uL; Eosinophils% 0.6 % (0-5); Hematocrit 48.2 % (40-54); Hemoglobin 16.1 g/dL (13.0-16.5); Lymphocyte # 2.43 X10^3/ul (0.83-4.51); Lymphocyte % 31.2 % (19-41); Mean Corp Hgb Conc 33.4 g/dL (32-36); Mean Corpuscular Hgb 30.2 pg (27.0-32.0); Mean Corpuscular Volume 90.4 fL (80-94); Mean Platelet Vol. 10.5 fl (6.2-12.0); NRBC Flagged by Analyzer 0 % (0-5); Neutrophil # 4.58 X10^3/uL (2.7-7.7); Neutrophil % 58.7 % (47-70); Platelet Count 287 K/mm3 (150-450); RBC Distribution Width CV 13.5 % (11.6-14.6); RBC Distribution Width SD 45.2 fl (35.1-43.9); Red Blood Count 5.33 M/mm3 (4.6-6.2); White Blood Count 7.8 K/mm3 (4.4-11.0)
[2024-01-11 16:03] LABS: AST(SGOT) 431 U/L (15-37); Alanine Aminotransfer ALT/SGPT 66 U/L (16-61); Albumin, Serum 3.9 g/dL (3.2-5.0); Alkaline Phosphatase 50 U/L (45-117); Anion Gap 8 (5-15); BUN 13 mg/dL (7-18); BUN/Creat Ratio 12.4 RATIO (10-20); Calcium,Total 9.1 mg/dL (8.5-10.1); Chloride 107 mmol/L (98-107); Creatinine, Serum 1.05 mg/dL (0.70-1.30); EST Glomerular Filtration Rate 79 mL/min (>60); Est Glom Filt Rate - Afr Amer 95 mL/min (>60); Globulin 3.8 g/dL (2.2-4.2); Glucose 92 mg/dL (74-106); Potassium 4.4 mmol/L (3.5-5.1); Protein, Total 7.7 g/dL (6.4-8.2); Sodium Level 137 mmol/L (136-145)
== END | disposition home or self-care (01) ==
LOC: MFPLAB 11:53
PROVIDERS: PCP Family Medicine; Visit Provider Family Medicine
DX: R79.89 Other specified abnormal findings of blood chemistry (principal)
CPT/HCPCS: 36415; 80053; 85025

== ENCOUNTER → 2024-01-22 | Outpatient (CLI) | payer OTHER, SELFPAY ==
--- NOTE | 2024-01-22 07:59 | US_ITS ---
EXAM: US ABDOMEN LIMITED, RIGHT UPPER QUADRANT CLINICAL INDICATION: worsening elevated LFTs TECHNIQUE: Real-time ultrasound of the right upper quadrant with image documentation. COMPARISON: CT abdomen and pelvis December 22, 2022. FINDINGS: LIVER: 14.5 cm in length and mildly echogenic consistent with hepatic steatosis. 8 mm x 6 mm x 5 mm cyst in the left lobe of the liver. Patent visualized hepatic veins, IVC, and main portal vein with normal direction of flow. No intrahepatic biliary ductal dilation. GALLBLADDER: Cholecystectomy.. COMMON BILE DUCT: Unremarkable as visualized. 4 mm at the janeen. The proximal common bile duct is within normal limits for the patient''s age. PANCREAS: Only a section of the head-body junction and proximal body are demonstrated. Mildly echogenic. It is otherwise obscured by bowel gas. No focal abnormality is demonstrated in the pancreas. No pancreatic ductal dilatation. RIGHT KIDNEY: Unremarkable. 10.7 cm x 4.3 cm x 4.2 cm. There is no hydronephrosis. No shadowing calculus. No focal lesion or perinephric collection is demonstrated. US/Abdomen Limited IMPRESSION: No specific acute abnormality. Normal liver size. Minimally increased echogenicity, presumed fatty infiltration. Subcentimeter cyst, no other suspicious hepatic lesion. Limited visualization of proximal and distal pancreas. Cholecystectomy. No bile duct dilatation. Electronically Signed: Sarah Collins MD at 23:30 EST ,
== END | disposition home or self-care (01) ==
LOC: US 07:58
PROVIDERS: PCP Family Medicine; Referring Provider Family Medicine; Visit Provider Family Medicine
DX: R94.5 Abnormal results of liver function studies (principal)
CPT/HCPCS: 76705

== ENCOUNTER → 2024-07-27 | Outpatient (CLI) | payer OTHER, SELFPAY ==
[2024-07-27 18:29] LABS: PSA,Total - Annual Screen 0.57 ng/mL (0.02-4.00)
[2024-07-27 18:37] LABS: Absolute Lymphocyte Count 2.51 X10^3/uL (0.83-4.51); Absolute Neutrophil Count 3.8 X10^3/uL (2.0-7.7); Basophil# 0.06 X10^3/uL; Basophil% 0.8 % (0-1); Eosinophil# 0.15 X10^3/uL; Eosinophils% 2.1 % (0-5); Hematocrit 45.4 % (40-54); Hemoglobin 15.4 g/dL (13.0-16.5); Lymphocyte # 2.51 X10^3/ul (0.83-4.51); Lymphocyte % 35.3 % (19-41); Mean Corp Hgb Conc 33.9 g/dL (32-36); Mean Corpuscular Hgb 30.7 pg (27.0-32.0); Mean Corpuscular Volume 90.6 fL (80-94); Mean Platelet Vol. 11.6 fl (6.2-12.0); Monocyte# 0.61 X10^3/uL; Monocyte% 8.6 % (0-10); NRBC Flagged by Analyzer 0 % (0-5); Neutrophil # 3.77 X10^3/uL (2.7-7.7); Neutrophil % 52.9 % (47-70); Platelet Count 251 K/mm3 (150-450); RBC Distribution Width CV 13.2 % (11.6-14.6); RBC Distribution Width SD 43.9 fl (35.1-43.9); Red Blood Count 5.01 M/mm3 (4.6-6.2); White Blood Count 7.1 K/mm3 (4.4-11.0)
[2024-07-27 18:53] LABS: ALB/GLOB Ratio 1.7 RATIO (0.9-2.4); AST(SGOT) 22 U/L (<=37); Alanine Aminotransfer ALT/SGPT 9 U/L (<=46); Albumin, Serum 4.6 g/dL (3.5-5.0); Alkaline Phosphatase 56 U/L (40-129); Anion Gap 14 (5-15); BUN 17 mg/dL (4-19); BUN/Creat Ratio 17.1 RATIO (10-20); Calcium,Total 9.8 mg/dL (7.6-11.0); Carbon Dioxide 22.4 mmol/L (21.0-32.0); Chloride 105 mmol/L (98-108); Creatinine, Serum 1.02 mg/dL (0.70-1.20); EST Glomerular Filtration Rate 88 (>60); Globulin 2.7 g/dL (2.2-4.2); Glucose 88 mg/dL (70-99); Potassium 3.9 mmol/L (3.3-5.1); Protein, Total 7.4 g/dL (5.9-8.4); Sodium Level 142 mmol/L (133-145); Total Bilirubin 0.66 mg/dL (0.00-1.30)
--- OUTSIDE RECORDS SUMMARY | 2024-07-27 21:25 | XMS RPT_ITS | CCD ---
Author Organization [facility] Care Team Providers Care Manager Of Applications Development Name Role Phone [facility] Admitting Unavaila pamela [facility] Attending Unavaila pamela [facility] Primary Care UnavailDr. Kris Choe Primary Care Provider Shanon Cadena Attending Provider Unavailable Dr. Kris Burnham Referring Provider [phone] Dr. Conrad Demarco Attending Provider Dr. Conrad Demarco Other Provider [phone] Kris Burnham Attending Unavailable Kris Burnham Referring Unavailable Kris Burnham Primary Care Unavailable Kris Burnham Attending Unavailable Kris Burnham Referring Unavailable Kris Burnham Primary Care Unavailable Kris Burnham Attending Unavailable Kris Burnham Primary Care Unavailable Kris Burnham Referring Unavailable Kris Burnham Attending Unavailable Kris Burnham Referring Unavailable Kris Burnham Primary Care Unavailable Kris Burnham Attending Unavailable Kris Burnham Primary Care Unavailable Allergies Allergy Classification Reported Allergen(s) Allergy Type Date of Onset Reaction(s) Facility (2 sources) Pollen Allergy to substance 09-09-2021 Other [facility] (1 source) Pollen Drug allergy (disorder) 12-22-2022 [facility] Repository Medications Current Medications Medication Drug Class(es) Dates Sig (Normalized) Sig (Original) acetaminophen 325 mg / oxyCODONE hydrochloride 5 mg oral tablet (1 source) Opioid Agonist Start: 12-22-2022 take 1 tablet by mouth every six hours as needed Oxycodone-Acetamin ophen Active 1 TABLET PO EVERY 6 HOURS NEEDED 12 3 December 22, 2022 ciprofloxacin 500 mg oral tablet (1 source) Quinolone Antimicrobial Start: 12-22-2022 take 500 mg by mouth twice daily Ciprofloxacin Hcl Active 500 MG PO TWICE A DAY December 22, 2022 12:00am clobetasol propionate 0.5 mg/ml topical solution (1 source) Corticosteroid Start: 12-22-2022 Clobetasol Active 1 APPLIC TOPICAL DAILY December 22, 2022 12:00am ibuprofen 600 mg oral tablet (1 source) Nonsteroidal Anti-inflammatory Drug Start: 12-22-2022 take 600 mg by mouth every six hours as needed Ibuprofen Active 600 MG PO EVERY 6 HOURS NEEDED December 22, 2022 12:00am loratadine 10 mg oral tablet (2 sources) Start: 07-22-2021 take 1 tablet by mouth once daily Loratadine (Claritin) 10 mg tablet Active 10 MG PO DAILY July 21, 2021 11:00pm ondansetron 4 mg disintegrating oral tablet (1 source) Serotonin-3 Receptor Antagonist Start: 12-22-2022 take 4 mg by mouth every eight hours as needed Ondansetron Active 4 MG PO EVERY 8 HOURS NEEDED December 22, 2022 12:00am tamsulosin hydrochloride 0.4 mg oral capsule (1 source) alpha-Adrenergic Dariana Start: 12-22-2022 take 0.4 mg by mouth once daily Tamsulosin Active 0.4 MG PO DAILY December 22, 2022 12:00am triamcinolone acetonide 0.001 mg/mg topical ointment (1 source) Corticosteroid Start: 12-22-2022 Triamcinolone Acetonide Active 1 APPLIC TOPICAL TWICE A DAY December 22, 2022 12:00am Problems Active Problems Problem Classification Problem Date Documented Da te Episodic/Chronic Calculus of urinary tract (2 sources) Renal colic; Translations: [Unspecified renal colic] 12-30-2022 Episodic Genitourinary symptoms and ill-defined conditions (1 source) Blood in urine; Translations: [Hematuria, unspecified] 12-30-2022 Episodic Other screening for suspected conditions (not mental disorders or infectious disease) (5 sources) Patient encounter status; Translations: [Encounter for screening for malignant neoplasm of colon] Onset: 02-07-2024 Episodic Urinary tract infections (1 source) Acute urinary tract infection; Translations: [Urinary tract infection, site not specified] 12-30-2022 Episodic Past or Other Problems Problem Classification Problem Date Documented Da te Episodic/Chronic Other non-traumatic joint disorders (1 source) Pain in right wrist; Translations: [Pain in right wrist] Onset: 10-26-2023 Episodic Results Test Name Value Interpretation Reference Range Facility Abdomen Limitedon 01-22-2024 Abdomen Limited [facility] Imaging Services [address] [place] [address] Abdomen Limited MR#: [id number] Acct: [id number] Name: ELDA ISSA Rep #: [id number] : 1970 M 53 From: Sarah Collins MD PCP: Dr. Kris Burnham MD Status: REG CLI Study: Abdomen Limited Date of Exam: 01/22/24 Exam# [id number] Ordering Dr: Kris Burnham MD -[id number] EXAM: US ABDOMEN LIMITED, RIGHT UPPER QUADRANT CLINICAL INDICATION: worsening elevated LFTs TECHNIQUE: Real-time ultrasound of the right upper quadrant with image documentation. COMPARISON: CT abdomen and pelvis December 22, 2022. FINDINGS: LIVER: 14.5 cm in length and mildly echogenic consistent with hepatic steatosis. 8 mm x 6 mm x 5 mm cyst in the left lobe of the liver. Patent visualized hepatic veins, IVC, and main portal vein with normal direction of flow. No intrahepatic biliary ductal dilation. GALLBLADDER: Cholecystectomy.. COMMON BILE DUCT: Unremarkable as visualized. 4 mm at the janeen. The proximal common bile duct is within normal limits for the patient''s age. PANCREAS: Only a section of the head-body junction and proximal body are demonstrated. Mildly echogenic. It is otherwise obscured by bowel gas. No focal abnormality is demonstrated in the pancreas. No pancreatic ductal dilatation. RIGHT KIDNEY: Unremarkable. 10.7 cm x 4.3 cm x 4.2 cm. There is no hydronephrosis. No shadowing calculus. No focal lesion or perinephric collection is demonstrated. US/Abdomen Limited IMPRESSION: No specific acute abnormality. Normal liver size. Minimally increased echogenicity, presumed fatty infiltration. Subcentimeter cyst, no other suspicious hepatic lesion. Limited visualization of proximal and distal pancreas. Cholecystectomy. No bile duct dilatation. Electronically Signed: Sarah Collins MD at 23:30 EST , CC: Dr. Kris Burnham MD Gun Mechanic: Signed Normal [facility] CBC W/Diff, Automatedon 12-17 Absolute Lymph 2.43 X10 3/uL Normal 0.83-4.51 [facility] Comment on above: Order Comment: Order Date: 01/11/24Order Info: 018- - CBCD Performed By: #### L 3890.6100, L3890.6200, L3890.6300 #### [facility] [address] [place], [address] Absolute Neut 4.6 X10 3/uL Normal 2.0-7.7 [facility] Comment on above: Order Comment: Order Date: 01/11/24Order Info: 018- - CBCD Performed By: #### L 3890.6100, L3890.6200, L3890.6300 #### [facility] [address] [place], [address] Basophils/100 WBC (Bld) 0.4 % Normal 0-1 [facility] Comment on above: Order Comment: Order Date: 01/11/24Order Info: 018- - CBCD Performed By: #### L 3890.6100, L3890.6200, L3890.6300 #### [facility] [address] [place], [address] Eosinophils/100 WBC (Bld) 0.6 % Normal 0-5 [facility] Comment on above: Order Comment: Order Date: 01/11/24Order Info: 0184-1 - CBCD Performed By: #### L 3890.6100, L3890.6200, L3890.6300 #### [facility] [address] [place], [address] Erythrocyte distribution width (RBC) [Ratio] 13.5 % Normal 11.6-14.6 [facility] Comment on above: Order Comment: Order Date: 01/11/24Order Info: 0184-1 - CBCD Performed By: #### L 3890.6100, L3890.6200, L3890.6300 #### [facility] [address] [place], [address] Hematocrit (Bld) [Volume fraction] 48.2 % Normal 40-54 [facility] Comment on above: Order Comment: Order Date: 01/11/24Order Info: 0184-1 - CBCD Performed By: #### L 3890.6100, L3890.6200, L3890.6300 #### [facility] [address] [place], [address] Hemoglobin (Bld) [Mass/Vol] 16.1 g/dL Normal 13.0-16.5 [facility] Comment on above: Order Comment: Order Date: 01/11/24Order Info: 0184-1 - CBCD Performed By: #### L 3890.6100, L3890.6200, L3890.6300 #### [facility] [address] [place], [address] IG% 0.100 Normal 0.0-0.9 [facility] Comment on above: Order Comment: Order Date: 01/11/24Order Info: 0184-1 - CBCD Result Comment: IG% - Immature Granulocytes (promyelocytes, myelocytes and metamyelocytes) > 1% indicates that a LEFT SHIFT is Present. Performed By: #### L 3890.6100, L3890.6200, L3890.6300 #### [facility] [address] [place], [address] Lymphocytes/100 WBC (Bld) 31.2 % Normal 19-41 [facility] Comment on above: Order Comment: Order Date: 01/11/24Order Info: 018-1 - CBCD Performed By: #### L 3890.6100, L3890.6200, L3890.6300 #### [facility] [address] [place], [address] MCH (RBC) [Entitic mass] 30.2 pg Normal 27.0-32.0 [facility] Comment on above: Order Comment: Order Date: 01/11/24Order Info: 0184- - CBCD Performed By: #### L 3890.6100, L3890.6200, L3890.6300 #### [facility] [address] [place], [address] MCHC (RBC) [Mass/Vol] 33.4 g/dL Normal 32-36 [facility] Comment on above: Order Comment: Order Date: 01/11/24Order Info: 018- - CBCD Performed By: #### L 3890.6100, L3890.6200, L3890.6300 #### [facility] [address] [place], [address] MCV (RBC) [Entitic vol] 90.4 fL Normal 80-94 [facility] Comment on above: Order Comment: Order Date: 01/11/24Order Info: 018- - CBCD Performed By: #### L 3890.6100, L3890.6200, L3890.6300 #### [facility] [address] [place], [address] Monocytes/100 WBC (Bld) 9.0 % Normal 0-10 [facility] Comment on above: Order Comment: Order Date: 01/11/24Order Info: 018- - CBCD Performed By: #### L 3890.6100, L3890.6200, L3890.6300 #### [facility] [address] [place], [address] Neutrophils/100 WBC (Bld) 58.7 % Normal 47-70 [facility] Comment on above: Order Comment: Order Date: 01/11/24Order Info: 018- - CBCD Performed By: #### L 3890.6100, L3890.6200, L3890.6300 #### [facility] [address] [place], [address] Nucleated RBC (Bld) [#/Vol] 0 10*3/uL Normal 0-5 [facility] Comment on above: Order Comment: Order Date: 01/11/24Order Info: 018- - CBCD Performed By: #### L 3890.6100, L3890.6200, L3890.6300 #### [facility] [address] [place], [address] Platelet mean volume (Bld) [Entitic vol] 10.5 fL Normal 6.2-12.0 [facility] Comment on above: Order Comment: Order Date: 01/11/24Order Info: 018- - CBCD Performed By: #### L 3890.6100, L3890.6200, L3890.6300 #### [facility] [address] [place], [address] Platelets (Bld) [#/Vol] 287 10*3/uL Normal 150-450 [facility] Comment on above: Order Comment: Order Date: 01/11/24Order Info: 018- - CBCD Performed By: #### L 3890.6100, L3890.6200, L3890.6300 #### [facility] [address] [place], [address] RBC (Bld) [#/Vol] 5.33 10*6/uL Normal 4.6-6.2 [facility] Comment on above: Order Comment: Order Date: 01/11/24Order Info: 018-1 - CBCD Performed By: #### L 3890.6100, L3890.6200, L3890.6300 #### [facility] [address] [place], [address] RDW SD 45.2 fl High 35.1-43.9 [facility] Comment on above: Order Comment: Order Date: 01/11/24Order Info: 0184-1 - CBCD Performed By: #### L 3890.6100, L3890.6200, L3890.6300 #### [facility] [address] [place], [address] WBC (Bld) [#/Vol] 7.8 10*3/uL Normal 4.4-11.0 [facility] Comment on above: Order Comment: Order Date: 01/11/24Order Info: 0184- - CBCD Performed By: #### L 3890.6100, L3890.6200, L3890.6300 #### [facility] [address] [place], [address] Comprehensive Metabolic Prof [facility] 01-11-2024 Albumin [Mass/Vol] 3.9 g/dL Normal 3.2-5.0 [facility] Comment on above: Order Comment: Order Date: 01/11/24Order Info: 0786-1 - CMP Performed By: #### L 3890.6100, L3890.6200, L3890.6300 #### [facility] [address] [place], [address] Albumin/Globulin [Mass ratio] 1.0 {ratio} Normal 0.9-2.4 [facility] Comment on above: Order Comment: Order Date: 01/11/24Order Info: 0786-1 - CMP Performed By: #### L 3890.6100, L3890.6200, L3890.6300 #### [facility] [address] [place], [address] ALK P 50 U/L Normal 45-117 [facility] Comment on above: Order Comment: Order Date: 01/11/24Order Info: 0786-1 - CMP Performed By: #### L 3890.6100, L3890.6200, L3890.6300 #### [facility] [address] [place], [address] ALT [Catalytic activity/Vol] 66 U/L High 16-61 [facility] Comment on above: Order Comment: Order Date: 01/11/24Order Info: 0786-1 - CMP Performed By: #### L 3890.6100, L3890.6200, L3890.6300 #### [facility] [address] [place], [address] AST [Catalytic activity/Vol] 431 U/L High 15-37 [facility] Comment on above: Order Comment: Order Date: 01/11/24Order Info: 0786-1 - CMP Performed By: #### L 3890.6100, L3890.6200, L3890.6300 #### [facility] [address] [place], [address] Bilirubin [Mass/Vol] 0.90 mg/dL Normal 0.20-1.00 [facility] Comment on above: Order Comment: Order Date: 01/11/24Order Info: 0786-1 - CMP Result Comment: For patients on eltrombopag therapy, use of Dimension [place] TBIL is not recommended. Performed By: #### L 3890.6100, L3890.6200, L3890.6300 #### [facility] [address] [place], [address] BUN/CRE 12.4 RATIO Normal 10-20 [facility] Comment on above: Order Comment: Order Date: 01/11/24Order Info: 0786-1 - CMP Performed By: #### L 3890.6100, L3890.6200, L3890.6300 #### [facility] [address] [place], [address] CA,Total 9.1 mg/dL Normal 8.5-10.1 [facility] Comment on above: Order Comment: Order Date: 01/11/24Order Info: 0786-1 - CMP Performed By: #### L 3890.6100, L3890.6200, L3890.6300 #### [facility] [address] [place], [address] Chloride [Moles/Vol] 107 mmol/L Normal 98-107 [facility] Comment on above: Order Comment: Order Date: 01/11/24Order Info: 0786-1 - CMP Performed By: #### L 3890.6100, L3890.6200, L3890.6300 #### [facility] [address] [place], [address] CO2 [Moles/Vol] 23.0 mmol/L Normal 21.0-32.0 [facility] Comment on above: Order Comment: Order Date: 01/11/24Order Info: 0786- - CMP Performed By: #### L 3890.6100, L3890.6200, L3890.6300 #### [facility] [address] [place], [address] Creatinine [Mass/Vol] 1.05 mg/dL Normal 0.70-1.30 [facility] Comment on above: Order Comment: Order Date: 01/11/24Order Info: 0786-1 - CMP Result Comment: The validity of the calculated GFR GFRAA in patients over 70 years has not been determined. Clinical correlation is essential. Performed By: #### L 3890.6100, L3890.6200, L3890.6300 #### [facility] [address] [place], [address] EST GFR - AA 95 mL/min Normal >60 [facility] Comment on above: Order Comment: Order Date: 01/11/24Order Info: 0786-1 - CMP Result Comment: Afri can [place] GFR Calc Performed By: #### L 3890.6100, L3890.6200, L3890.6300 #### [facility] [address] [place], [address] GAP 8 Normal 5-15 [facility] Comment on above: Order Comment: Order Date: 01/11/24Order Info: 0786-1 - CMP Performed By: #### L 3890.6100, L3890.6200, L3890.6300 #### [facility] [address] [place], [address] GFR/1.73 sq M.predicted among non-blacks MDRD (S/P/Bld) [Vol rate/Area] 79 mL/min/{1.73_m2} Normal >60 [facility] Comment on above: Order Comment: Order Date: 01/11/24Order Info: 0786-1 - CMP Result Comment: Non- GFR Calc Performed By: #### L 3890.6100, L3890.6200, L3890.6300 #### [facility] [address] [place], [address] Globulin (S) [Mass/Vol] 3.8 g/dL Normal 2.2-4.[address] [facility] Comment on above: Order Comment: Order Date: 01/11/24Order Info: 0786-1 - CMP Performed By: #### L 3890.6100, L3890.6200, L3890.6300 #### [facility] [address] [place], [address] Glucose [Mass/Vol] 92 mg/dL Normal 74-106 [facility] Comment on above: Order Comment: Order Date: 01/11/24Order Info: 0786-1 - CMP Performed By: #### L 3890.6100, L3890.6200, L3890.6300 #### [facility] [address] [place], [address] Potassium [Moles/Vol] 4.4 mmol/L Normal 3.5-5.1 [facility] Comment on above: Order Comment: Order Date: 01/11/24Order Info: 0786-1 - CMP Performed By: #### L 3890.6100, L3890.6200, L3890.6300 #### [facility] [address] [place], [address] Sodium [Moles/Vol] 137 mmol/L Normal 136-145 [facility] Comment on above: Order Comment: Order Date: 01/11/24Order Info: 0786-1 - CMP Performed By: #### L 3890.6100, L3890.6200, L3890.6300 #### [facility] [address] [place], [address] T PROT 7.7 g/dL Normal 6.4-8.2 [facility] Comment on above: Order Comment: Order Date: 01/11/24Order Info: 0786-1 - CMP Performed By: #### L 3890.6100, L3890.6200, L3890.6300 #### [facility] [address] [place], [address] Urea nitrogen [Mass/Vol] 13 mg/dL Normal 7-18 [facility] Comment on above: Order Comment: Order Date: 01/11/24Order Info: 0786-1 - CMP Performed By: #### L 3890.6100, L3890.6200, L3890.6300 #### [facility] [address] [place], [address] Wrist min 3 Viewson 10-07-19 Wrist min 3 Views [facility] Imaging Services [address] [place] [address] Wrist min 3 Views MR#: [id number] Acct: [id number] Name: ELDA ISSA Rep #: [id number] : 1970 M 53 From: Jose Luis Snell MD PCP: Dr. Kris Burnham MD Status: REG CLI Study: Wrist min 3 Views Date of Exam: 10/07/23 Exam# [id number] Ordering Dr: Kris Burnham MD -[id number] STUDY: X-RAY - LEFT WRIST REASON FOR EXAM: Male, 53 years old. Pain. Patient fell 4 months ago. TECHNIQUE: 3 views of the left wrist were obtained. COMPARISON: None. FINDINGS: Normal visualized distal radius and ulna. Normal radiocarpal articulation. Normal distal radioulnar articulation. Normal carpal bones. Normal carpal articulations. Normal carpometacarpal articulation of the thumb. Normal second through fifth carpometacarpal articulations. Normal visualized metacarpal bones. The soft tissue structures are unremarkable. There is no demonstrated acute fracture. RAD/Wrist min 3 Views IMPRESSION: Normal x-ray examination of the left wrist. Electronically Signed: Jose Luis Snell MD at 11:33 EDT Reading Location ID and State: [facility] / [place] , Service support , CC: Dr. Kris Burnhma MD Gun Mechanic: Signed Normal [facility] Wrist min 3 Views [facility] Imaging Services [address] [place] [id number] Wrist min 3 Views MR#: [id number] Acct: [id number] Name: ELDA ISSA Rep #: [id number] : 1970 M 53 From: Jose Luis Snell MD PCP: Dr. Kris Burnham MD Status: REG CLI Study: Wrist min 3 Views Date of Exam: 10/07/23 Exam# [id number] Ordering Dr: Kris Burnham MD -[id number] STUDY: X-RAY - RIGHT WRIST REASON FOR EXAM: Male, 53 years old. Pain. Patient fell 4 months ago. TECHNIQUE: 3 views of the right wrist were obtained. COMPARISON: None. FINDINGS: Normal visualized distal radius and ulna. Normal radiocarpal articulation. Normal distal radioulnar articulation. Normal carpal bones. Normal carpal articulations. Normal carpometacarpal articulation of the thumb. Normal second through fifth carpometacarpal articulations. Normal visualized metacarpal bones. The soft tissue structures are unremarkable. There is no demonstrated acute fracture. RAD/Wrist min 3 Views IMPRESSION: Normal x-ray examination of the right wrist. Electronically Signed: Jose Luis Snell MD at 11:32 EDT Reading Location ID and State: [facility] / [place] , Service support , CC: Dr. Kris Burnham MD Gun Mechanic: Signed Normal [facility] Hepatitis B Surface Antibody on 07-30-2023 HEP B Surf Ab Non-Reactive Normal [facility] Comment on above: Result Comment: Non Reactive: Inconsistent with immunity less than <10 mIU/mL Reactive: Consistent with immunity greater than or equal to 10 mIU/mL Performed By: #### L 3890.6100, L3890.6200, L3890.6300 #### [facility] [address] [place], [place], [id number] Hepatitis B Surface Antigeno n 07-30-2023 HEP B Surf Ag Non-Reactive Normal Nonreactive [facility] Comment on above: Performed By: #### L 3890.6100, L3890.6200, L3890.6300 #### [facility] [address] [place], [place], [address] Hepatitis C Antibodyon 07-29 Hepatitis C AB Non-Reactive Normal Nonreactive [facility] Comment on above: Result Comment: Non Reactive: < 0.8 Equivocal: >/= 0.8 to < 1.0 Reactive: >/= 1.0 The [facility] requires that a reactive/equivocal HCV antibody result be sent out for confirmation. HCV Quant by PCR testing. Performed By: #### L 3890.6100, L3890.6200, L3890.6300 #### [facility] [address] [place], [address] CBC W/Diff, Automatedon 07-16 Absolute Lymph 3.10 X10 3/uL Normal 0.83-4.51 [facility] Comment on above: Order Comment: Order Date: 07/27/23 Order Info: 0184- - CBCD Performed By: #### L 501.9520, L500.4100, L500.4050, L100.0100 #### [facility] [address] [place], [address] Absolute Neut 3.4 X10 3/uL Normal 2.0-7.7 [facility] Comment on above: Order Comment: Order Date: 07/27/23 Order Info: 0184- - CBCD Performed By: #### L 501.9520, L500.4100, L500.4050, L100.0100 #### [facility] [address] [place], [address] Basophils/100 WBC (Bld) 0.8 % Normal 0-1 [facility] Comment on above: Order Comment: Order Date: 07/27/23 Order Info: 0184-1 - CBCD Performed By: #### L 501.9520, L500.4100, L500.4050, L100.0100 #### [facility] [address] [place], [address] Eosinophils/100 WBC (Bld) 1.8 % Normal 0-5 [facility] Comment on above: Order Comment: Order Date: 07/27/23 Order Info: 0184-1 - CBCD Performed By: #### L 501.9520, L500.4100, L500.4050, L100.0100 #### [facility] [address] [place], [address] Erythrocyte distribution width (RBC) [Ratio] 13.6 % Normal 11.6-14.6 [facility] Comment on above: Order Comment: Order Date: 07/27/23 Order Info: 0184-1 - CBCD Performed By: #### L 501.9520, L500.4100, L500.4050, L100.0100 #### [facility] [address] [place], [address] Hematocrit (Bld) [Volume fraction] 46.4 % Normal 40-54 [facility] Comment on above: Order Comment: Order Date: 07/27/23 Order Info: 0184-1 - CBCD Performed By: #### L 501.9520, L500.4100, L500.4050, L100.0100 #### [facility] [address] [place], [address] Hemoglobin (Bld) [Mass/Vol] 15.7 g/dL Normal 13.0-16.5 [facility] Comment on above: Order Comment: Order Date: 07/27/23 Order Info: 0184-1 - CBCD Performed By: #### L 501.9520, L500.4100, L500.4050, L100.0100 #### [facility] [address] [place], [address] IG% 0.300 Normal 0.0-0.9 [facility] Comment on above: Order Comment: Order Date: 07/27/23 Order Info: 0184-1 - CBCD Result Comment: IG% - Immature Granulocytes (promyelocytes, myelocytes and metamyelocytes) > 1% indicates that a LEFT SHIFT is Present. Performed By: #### L 501.9520, L500.4100, L500.4050, L100.0100 #### [facility] [address] [place], [address] Lymphocytes/100 WBC (Bld) 42.1 % High 19-41 [facility] Comment on above: Order Comment: Order Date: 07/27/23 Order Info: 0184-1 - CBCD Performed By: #### L [id number], L500.4100, L500.4050, L100.0100 #### [facility] [address] [place], [address] MCH (RBC) [Entitic mass] 30.4 pg Normal 27.0-32.0 [facility] Comment on above: Order Comment: Order Date: 07/27/23 Order Info: 0184- - CBCD Performed By: #### L 501.9520, L500.4100, L500.4050, L100.0100 #### [facility] [address] [place], [address] MCHC (RBC) [Mass/Vol] 33.8 g/dL Normal 32-36 [facility] Comment on above: Order Comment: Order Date: 07/27/23 Order Info: 0184- - CBCD Performed By: #### L [id number], L500.4100, L500.4050, L100.0100 #### [facility] [address] [place], [address] MCV (RBC) [Entitic vol] 89.7 fL Normal 80-94 [facility] Comment on above: Order Comment: Order Date: 07/27/23 Order Info: 0184-1 - CBCD Performed By: #### L 501.9520, L500.4100, L500.4050, L100.0100 #### [facility] [address] [place], [address] Monocytes/100 WBC (Bld) 8.7 % Normal 0-10 [facility] Comment on above: Order Comment: Order Date: 07/27/23 Order Info: 0184-1 - CBCD Performed By: #### L [id number], L500.4100, L500.4050, L100.0100 #### [facility] [address] [place], [address] Neutrophils/100 WBC (Bld) 46.3 % Low 47-70 [facility] Comment on above: Order Comment: Order Date: 07/27/23 Order Info: 0184- - CBCD Performed By: #### L 501.9520, L500.4100, L500.4050, L100.0100 #### [facility] [address] [place], [address] Nucleated RBC (Bld) [#/Vol] 0 10*3/uL Normal 0-5 [facility] Comment on above: Order Comment: Order Date: 07/27/23 Order Info: 0184- - CBCD Performed By: #### L 501.9520, L500.4100, L500.4050, L100.0100 #### [facility] [address] [place], [address] Platelet mean volume (Bld) [Entitic vol] 9.9 fL Normal 6.2-12.0 [facility] Comment on above: Order Comment: Order Date: 07/27/23 Order Info: 0184- - CBCD Performed By: #### L 501.9520, L500.4100, L500.4050, L100.0100 #### [facility] [address] [place], [address] Platelets (Bld) [#/Vol] 292 10*3/uL Normal 150-450 [facility] Comment on above: Order Comment: Order Date: 07/27/23 Order Info: 0184-1 - CBCD Performed By: #### L 501.9520, L500.4100, L500.4050, L100.0100 #### [facility] [address] [place], [address] RBC (Bld) [#/Vol] 5.17 10*6/uL Normal 4.6-6.2 [facility] Comment on above: Order Comment: Order Date: 07/27/23 Order Info: 0184-1 - CBCD Performed By: #### L 501.9520, L500.4100, L500.4050, L100.0100 #### [facility] [address] [place], [address] RDW SD 44.4 fl High 35.1-43.9 [facility] Comment on above: Order Comment: Order Date: 07/27/23 Order Info: 0184-1 - CBCD Performed By: #### L 501.9520, L500.4100, L500.4050, L100.0100 #### [facility] [address] [place], [address] WBC (Bld) [#/Vol] 7.4 10*3/uL Normal 4.4-11.0 [facility] Comment on above: Order Comment: Order Date: 07/27/23 Order Info: 0184-1 - CBCD Performed By: #### L 501.9520, L500.4100, L500.4050, L100.0100 #### [facility] [address] [place], [address] Comprehensive Metabolic Prof ilon 07-27-2023 Albumin [Mass/Vol] 4.0 g/dL Normal 3.2-5.0 [facility] Comment on above: Order Comment: Order Date: 07/27/23 Order Info: [id number] - CMP Order Info: [id number] - LIPID Order Info: 3016-3 - TSH Performed By: #### L 501.9520, L500.4100, L500.4050, L100.0100 #### [facility] [address] [place], [address] Albumin/Globulin [Mass ratio] 1.1 {ratio} Normal 0.9-2.4 [facility] Comment on above: Order Comment: Order Date: 07/27/23 Order Info: [id number] - CMP Order Info: [id number] - LIPID Order Info: 301-3 - TSH Performed By: #### L 501.9520, L500.4100, L500.4050, L100.0100 #### [facility] [address] [place], [address] ALK P 54 U/L Normal 45-117 [facility] Comment on above: Order Comment: Order Date: 07/27/23 Order Info: 785-1 - CMP Order Info: [id number] - LIPID Order Info: 3 - TSH Performed By: #### L 501.9520, L500.4100, L500.4050, L100.0100 #### [facility] [address] [place], [address] ALT [Catalytic activity/Vol] 47 U/L Normal 16-61 [facility] Comment on above: Order Comment: Order Date: 07/27/23 Order Info: 0786- - CMP Order Info: [id number] - LIPID Order Info: 3 - TSH Performed By: #### L 501.9520, L500.4100, L500.4050, L100.0100 #### [facility] [address] [place], [address] AST [Catalytic activity/Vol] 46 U/L High 15-37 [facility] Comment on above: Order Comment: Order Date: 07/27/23 Order Info: 0786- - CMP Order Info: [id number] - LIPID Order Info: 301-3 - TSH Performed By: #### L 501.9520, L500.4100, L500.4050, L100.0100 #### [facility] [address] [place], [address] Bilirubin [Mass/Vol] 0.60 mg/dL Normal 0.20-1.00 [facility] Comment on above: Order Comment: Order Date: 07/27/23 Order Info: [id number] - CMP Order Info: [id number] - LIPID Order Info: 3 - TSH Result Comment: For patients on eltrombopag therapy, use of Dimension [place] TBIL is not recommended. Performed By: #### L 501.9520, L500.4100, L500.4050, L100.0100 #### [facility] [address] [place], [address] BUN/CRE 15.6 RATIO Normal 10-20 [facility] Comment on above: Order Comment: Order Date: 07/27/23 Order Info: 07- - CMP Order Info: - LIPID Order Info: [id number] - TSH Performed By: #### L 501.9520, L500.4100, L500.4050, L100.0100 #### [facility] [address] [place], [address] CA,Total 8.9 mg/dL Normal 8.5-10.1 [facility] Comment on above: Order Comment: Order Date: 07/27/23 Order Info: 0786 - CMP Order Info: - LIPID Order Info: [id number] - TSH Performed By: #### L 501.9520, L500.4100, L500.4050, L100.0100 #### [facility] [address] [place], [address] Chloride [Moles/Vol] 110 mmol/L High 98-107 [facility] Comment on above: Order Comment: Order Date: 07/27/23 Order Info: 0786-1 - CMP Order Info: [id number] - LIPID Order Info: [id number] - TSH Performed By: #### L 501.9520, L500.4100, L500.4050, L100.0100 #### [facility] [address] [place], [address] CO2 [Moles/Vol] 25.0 mmol/L Normal 21.0-32.0 [facility] Comment on above: Order Comment: Order Date: 07/27/23 Order Info: 785- - CMP Order Info: - LIPID Order Info: [id number] - TSH Performed By: #### L 501.9520, L500.4100, L500.4050, L100.0100 #### [facility] [address] [place], [address] Creatinine [Mass/Vol] 0.96 mg/dL Normal 0.70-1.30 [facility] Comment on above: Order Comment: Order Date: 07/27/23 Order Info: [id number] - CMP Order Info: - LIPID Order Info: [id number] - TSH Result Comment: The validity of the calculated GFR GFRAA in patients over 70 years has not been determined. Clinical correlation is essential. Performed By: #### L 501.9520, L500.4100, L500.4050, L100.0100 #### [facility] [address] [place], [address] EST GFR - AA 106 mL/min Normal >60 [facility] Comment on above: Order Comment: Order Date: 07/27/23 Order Info: [id number] - CMP Order Info: - LIPID Order Info: [id number] - TSH Result Comment: Afri can [place] GFR Calc Performed By: #### L 501.9520, L500.4100, L500.4050, L100.0100 #### [facility] [address] [place], [address] GAP 5 Normal 5-15 [facility] Comment on above: Order Comment: Order Date: 07/27/23 Order Info: [id number] - CMP Order Info: - LIPID Order Info: [id number] - TSH Performed By: #### L 501.9520, L500.4100, L500.4050, L100.0100 #### [facility] [address] [place], [address] GFR/1.73 sq M.predicted among non-blacks MDRD (S/P/Bld) [Vol rate/Area] 88 mL/min/{1.73_m2} Normal >60 [facility] Comment on above: Order Comment: Order Date: 07/27/23 Order Info: 07- - CMP Order Info: - LIPID Order Info: [id number] - TSH Result Comment: Non- GFR Calc Performed By: #### L 501.9520, L500.4100, L500.4050, L100.0100 #### [facility] [address] [place], [address] Globulin (S) [Mass/Vol] 3.6 g/dL Normal 2.2-4.[address] [facility] Comment on above: Order Comment: Order Date: 07/27/23 Order Info: 07 - CMP Order Info: - LIPID Order Info: [id number] - TSH Performed By: #### L 501.9520, L500.4100, L500.4050, L100.0100 #### [facility] [address] [place], [place], [address] Glucose [Mass/Vol] 83 mg/dL Normal 74-106 [facility] Comment on above: Order Comment: Order Date: 07/27/23 Order Info: 0786- - CMP Order Info: [id number] - LIPID Order Info: 3015-04 - TSH Performed By: #### L 501.9520, L500.4100, L500.4050, L100.0100 #### [facility] [address] [place], [address] Potassium [Moles/Vol] 3.7 mmol/L Normal 3.5-5.1 [facility] Comment on above: Order Comment: Order Date: 07/27/23 Order Info: 0786- - CMP Order Info: [id number] - LIPID Order Info: 3015-04 - TSH Performed By: #### L 501.9520, L500.4100, L500.4050, L100.0100 #### [facility] [address] [place], [address] Sodium [Moles/Vol] 140 mmol/L Normal 136-145 [facility] Comment on above: Order Comment: Order Date: 07/27/23 Order Info: 0786-1 - CMP Order Info: [id number] - LIPID Order Info: [id number] - TSH Performed By: #### L 501.9520, L500.4100, L500.4050, L100.0100 #### [facility] [address] [place], [address] T PROT 7.6 g/dL Normal 6.4-8.2 [facility] Comment on above: Order Comment: Order Date: 07/27/23 Order Info: 0786- - CMP Order Info: - LIPID Order Info: [id number] - TSH Performed By: #### L 501.9520, L500.4100, L500.4050, L100.0100 #### [facility] [address] [place], [address] Urea nitrogen [Mass/Vol] 15 mg/dL Normal 7-18 [facility] Comment on above: Order Comment: Order Date: 07/27/23 Order Info: [id number] - CMP Order Info: - LIPID Order Info: [id number] - TSH Performed By: #### L 501.9520, L500.4100, L500.4050, L100.0100 #### [facility] [address] [place], [address] Lipid Profileon 07-27-2023 Cholesterol [Mass/Vol] 180 mg/dL Normal 200 [facility] Comment on above: Order Comment: Order Date: 07/27/23 Order Info: 0786-1 - CMP Order Info: [id number] - LIPID Order Info: [id number] - TSH Result Comment: <200 mg/dL Desirable 200-240 mg/dL Borderline >240 mg/dL High Risk Performed By: #### L 501.9520, L500.4100, L500.4050, L100.0100 #### [facility] [address] [place], [address] Cholesterol in HDL [Mass/Vol] 52 mg/dL Normal [facility] Comment on above: Order Comment: Order Date: 07/27/23 Order Info: 0786-1 - CMP Order Info: [id number] - LIPID Order Info: [id number] - TSH Result Comment: The drugs N-Acetylcysteine and Metamizole may falsely depress this assay. Reference Range HDL <40 mg/dL Low HDL Cholesterol HDL >or= 60 mg/dL High HDL Cholesterol Performed By: #### L 501.9520, L500.4100, L500.4050, L100.0100 #### [facility] [address] [place], [address] Cholesterol in LDL [Mass/Vol] 110 mg/dL Normal 0-130 [facility] Comment on above: Order Comment: Order Date: 07/27/23 Order Info: 0786- - CMP Order Info: [id number] - LIPID Order Info: [id number] - TSH Performed By: #### L 501.9520, L500.4100, L500.4050, L100.0100 #### [facility] [address] [place], [address] Cholesterol in VLDL [Mass/Vol] 18 mg/dL Normal 5-40 [facility] Comment on above: Order Comment: Order Date: 07/27/23 Order Info: 0786-1 - CMP Order Info: [id number] - LIPID Order Info: [id number] - TSH Performed By: #### L 501.9520, L500.4100, L500.4050, L100.0100 #### [facility] [address] [place], [address] Triglyceride [Mass/Vol] 89 mg/dL Normal [facility] Comment on above: Order Comment: Order Date: 07/27/23 Order Info: [id number] - CMP Order Info: [id number] - LIPID Order Info: [id number] - TSH Result Comment: The drugs N-Acetylcysteine and Metamizole may falsely depress this assay. Serum Triglycerides Reference Interval Normal <150 mg/dL Borderline high 150 - 199 mg/dL High 200 - 499 mg/dL Very High > or = 500 mg/dL Performed By: #### L 501.9520, L500.4100, L500.4050, L100.0100 #### [facility] [address] [place], [address] Thyroid Stim Hormone (TSH)on 07-27-2023 TSH 2.30 uIU/mL Normal 0.358-3.74 [facility] Comment on above: Order Comment: Order Date: 07/27/23 Order Info: 0786-1 - CMP Order Info: [id number] - LIPID Order Info: [id number] - TSH Performed By: #### L 501.9520, L500.4100, L500.4050, L100.0100 #### [facility] [address] [place], [address] Urinalysis, Completeon 07-26 BACTERIA 0 SEEN Normal None Seen [facility] Comment on above: Order Comment: CLEAN CATCH Performed By: #### L 400.0001 #### [facility] [address] [place], [address] EPI,SQUAMOUS 0 SEEN Normal 0-5 [facility] Comment on above: Order Comment: CLEAN CATCH Performed By: #### L 400.0001 #### [facility] [address] [place], [address] Mucus Ql (Urine sed) 0 SEEN Normal [facility] Comment on above: Order Comment: CLEAN CATCH Performed By: #### L 400.0001 #### [facility] [address] [place], [address] RBC 0 SEEN Normal 0-5 [facility] Comment on above: Order Comment: CLEAN CATCH Performed By: #### L 400.0001 #### [facility] [address] [place], [place], [address] WBC 0 SEEN Normal 0-5 [facility] Comment on above: Order Comment: CLEAN CATCH Performed By: #### L 400.0001 #### [facility] [address] [place], [place], [address] Absolute lymphocyte countOrd ered By: Florentin Head on 12-22-2022 Lymphocytes Auto (Unsp spec) [#/Vol] 6.90 10*3/uL 0.83-4.51 [facility] Basophil percentageOrdered B y: Florentin Head on 12-22-2022 Basophil percentage 0-5 SEEN /hpf 0-5 [facility] Basophils/100 WBC (Bld) 0.7 % 0-[address] [facility] Chloride [Moles/Vol] 109 mmol/L 98-107 [facility] Eosinophils/100 WBC (Bld) 1.3 % 0-5 [facility] Glucose [Mass/Vol] 136 mg/dL 74-106 [facility] Comment on above: Fasting Glucose resu lt greater than or equal to 126 mg/dL suggests DIABETES MELLITUS per A.D.A. criteria. Neutrophils (Bld) [#/Vol] 3.9 10*3/uL 2.0-7.7 [facility] Neutrophils/100 WBC (Bld) 31.7 % 47-70 [facility] Potassium [Moles/Vol] 3.2 mmol/L 3.5-5.1 [facility] Sodium [Moles/Vol] 144 mmol/L 136-145 [facility] WBC (Bld) [#/Vol] 12.2 10*3/uL 4.4-11.0 [facility] Bilirubin Test strip Ql (U)O rdered By: Florentin Head on 12-22-2022 Bilirubin Ql (U) Negative Negative [facility] Blood erythrocytes count (nu mber/volume)Ordered By: Florentin Head on 12-22-2022 RBC (Bld) [#/Vol] 4.95 10*6/uL 4.6-6.2 [facility] Blood hemoglobin measurement (mass/volume)Ordered By: Florentin Head on 12-22-2022 Hemoglobin (Bld) [Mass/Vol] 15.1 g/dL 13.0-16.5 [facility] Blood lymphocytes/100 leukoc ytesOrdered By: Florentin Head on 12-22-2022 Lymphocytes/100 WBC (Bld) 56.7 % 19-41 [facility] Blood manual differential co mment interpretation (narrative result)Ordered By: Florentin Head on 12-22-2022 Manual differential comment Jose (Bld) [Interp] SCANNED [facility] Comment on above: LYMPHOCYTOSIS PRESEN T Blood monocytes/100 leukocyt esOrdered By: Florentin Head on 12-22-2022 Monocytes/100 WBC (Bld) 9.4 % 0-10 [facility] Blood platelet mean volumeOr dered By: Florentin Head on 12-22-2022 Platelet mean volume (Bld) [Entitic vol] 10.3 fL 6.2-12.0 [facility] Blood platelet morphology de termination (nominal result)Ordered By: Florentin Head on 12-22-2022 Platelet morphology finding Nom (Bld) BIZARRE [facility] Culture, urineOrdered By: Marquis Head on 12-22-2022 Bacteria identified Cx Nom (U) Streptococcus group B [facility] Determination of erythrocyte mean corpuscular volume (MCV)Ordered By: Florentin Head on 12-22-2022 MCV (RBC) [Entitic vol] 90.7 fL 80-94 [facility] Hematocrit Auto (Bld) [Volum e fraction]Ordered By: Florentin Head on 12-22-2022 Hematocrit (Bld) [Volume fraction] 44.9 % 40-54 [facility] Ketones Test strip Ql (U)Ord ered By: Florentin Head on 12-22-2022 Ketones Ql (U) Negative Negative [facility] - Chemistry and C hemistry - challengeOrdered By: Florentin Head on 12-22-2022 CO2 [Moles/Vol] 26.0 mmol/L 21.0-32.0 [facility] Urea nitrogen/Creatinine [Mass ratio] 12.3 mg/mg 10-20 [facility] - Hematology and Cell countsOrdered By: Florentin Head on 12-22-2022 Erythrocyte distribution width (RBC) [Entitic vol] 45.3 fL 35.1-43.9 [facility] Erythrocyte distribution width (RBC) [Ratio] 13.7 % 11.6-14.6 [facility] Immature granulocytes/100 WBC (Bld) 0.200 % 0.0-0.9 [facility] Comment on above: IG% - Immature Granu locytes (promyelocytes, myelocytes and metamyelocytes) > 1% indicates that a LEFT SHIFT is Present. MCH (RBC) [Entitic mass] 30.5 pg 27.0-32.0 [facility] Nucleated RBC/100 WBC (Bld) [Ratio] 0 % 0-5 [facility] MCHC Auto (RBC) [Mass/Vol]Or dered By: Florentin Head on 12-22-2022 MCHC (RBC) [Mass/Vol] 33.6 g/dL 32-36 [facility] Mucus LM Ql (Urine sed)Order ed By: Florentin Head on 12-22-2022 Mucus Ql (Urine sed) 0 SEEN /hpf [facility] Nitrite Test strip Ql (U)Ord ered By: Florentin Head on 12-22-2022 Nitrite Ql (U) Negative Negative [facility] No Panel InformationOrdered By: Florentin Head on 12-22-2022 Atypical Lymphocytes 3+ % [facility] Comment on above: LYMPHOCYOTISIS PRESE NT Estimated Creatinine Clearance Calc 62.31 ml/min [facility] Estimated GFR (MDRD) Amer 80 mL/min >60 [facility] Comment on above: GFR Calc Estimated GFR (MDRD) Non-Af Amer 66 mL/min >60 [facility] Comment on above: Non- GFR Calc Reactive Lymphocytes 3+ [facility] Platelets bldOrdered By: Doug Head on 12-22-2022 Platelets (Bld) [#/Vol] 310 10*3/uL 150-450 [facility] Protein Test strip Ql (U)Ord ered By: Florentin Head on 12-22-2022 Protein Ql (U) 30 mg/dl Negative [facility] Review by pathologistOrdered By: Florentin Head on 12-22-2022 Pathologist review Jose (Unsp spec) [Interp] Reviewed [facility] Comment on above: Previous reported re sult: Tati foll Edited by: MANUEL on 12/23/22:0958Leukocytosis and Absolute Lymphocytosis Clinical correlation necessary.Omer Darling M.D. 12/23/22 AMENDED REPORT 12/23/22 0958 PATH REV previously reported as: June foll Serum or plasma calcium daryl urement (mass/volume)Ordered By: Florentin Head on 12-22-2022 Calcium [Mass/Vol] 8.8 mg/dL 8.5-10.1 [facility] Serum or plasma creatinine m easurement (mass/volume)Ordered By: Florentin Head on 12-22-2022 Creatinine [Mass/Vol] 1.22 mg/dL 0.70-1.30 [facility] Comment on above: The validity of the calculated GFR & GFRAA in patients over 70 years has not been determined. Clinical correlation is essential. Serum or plasma urea nitroge n measurement (mass/volume)Ordered By: Florentin Head on 12-22-2022 Urea nitrogen [Mass/Vol] 15 mg/dL 7-18 [facility] Squamous epithelial cells de tection in urine sediment by light microscopyOrdered By: Florentin Head on 12-22-2022 Epithelial cells.squamous LM Ql (Urine sed) 0 SEEN /hpf 0-5 [facility] Thin prep Papanicolaou smear with manual screeningOrdered By: Florentin Head on 12-22-2022 Thin prep Papanicolaou smear with manual screening 9 5-15 [facility] Urine blood detectionOrdered By: Florentin Head on 12-22-2022 RBC Ql (U) 250 /ul Negative [facility] RBC Ql (U) > 100 SEEN /hpf 0-5 [facility] Urine clarityOrdered By: Doug Head on 12-22-2022 Clarity (U) Cloudy Clear [facility] Urine color determinationOrd ered By: Florentin Head on 12-22-2022 Color (U) Yellow Yellow [facility] Urine glucose detectionOrder ed By: Florentin Head on 12-22-2022 Glucose Ql (U) Normal mg/dl Normal [facility] Urine leukocyte esterase det ection by dipstickOrdered By: Florentin Head on 11-07-2023 Leukocyte esterase Test strip Ql (U) 25 /ul Negative [facility] Urine pHOrdered By: Florentin Head on 12-22-2022 pH (U) 6.0 [pH] 5.0 - 8.0 [facility] Urine sediment bacteria coun t by microscopy (number/high power field)Ordered By: Florentin Head on 12-22-2022 Bacteria LM.HPF (Urine sed) [#/Area] 1 /[HPF] None Seen [facility] Urine specific gravity measu rementOrdered By: Florentin Head on 12-22-2022 Specific gravity (U) [Rel density] 1.025 1.002-1.030 [facility] Urobilinogen Auto test strip Ql (U)Ordered By: Florentin Head on 12-22-2022 Urobilinogen Ql (U) Normal mg/dl Normal [facility] Absolute lymphocyte counton 07-08-2021 Lymphocytes Auto (Unsp spec) [#/Vol] 1.70 10*3/uL 0.83-4.51 [facility] Work Phone: Basophil percentageon 2021 Basophils/100 WBC (Bld) 0.6 % 0-1 [facility] Work Phone: Bilirubin [Mass/Vol] 0.50 mg/dL 0.20-1.00 [facility] Work Phone: Comment on above: For patients on eltr ombopag therapy, use of Dimension [place] TBIL is not recommended. Chloride [Moles/Vol] 110 mmol/L 98-107 [facility] Work Phone: Cholesterol [Mass/Vol] 152 mg/dL <200 [facility] Work Phone: Comment on above: <200 mg/dL Desirable 200-240 mg/dL Borderline >240 mg/dL High Risk Eosinophils/100 WBC (Bld) 2.1 % 0-5 [facility] Work Phone: Glucose [Mass/Vol] 111 mg/dL 74-106 [facility] Work Phone: Comment on above: Fasting Glucose resu lt from 100 to 125 mg/dL suggests IMPAIRED HOMEOSTASIS per A.D.A. criteria. Neutrophils (Bld) [#/Vol] 2.8 10*3/uL 2.0-7.7 [facility] Work Phone: Neutrophils/100 WBC (Bld) 54.4 % 47-70 [facility] Work Phone: Potassium [Moles/Vol] 3.8 mmol/L 3.5-5.1 [facility]: Protein [Mass/Vol] 7.2 g/dL 6.4-8.2 [facility] Work Phone: Sodium [Moles/Vol] 142 mmol/L 136-145 [facility] Work Phone: Triglyceride [Mass/Vol] 119 mg/dL <199 [facility] Work Phone: Comment on above: The drugs N-Acetylcy steine and Metamizole may falsely depress this assay.Serum Triglycerides Reference Interval Normal <150 mg/dL Borderline high 150 - 199 mg/dL High 200 - 499 mg/dL Very High > or = 500 mg/dL WBC (Bld) [#/Vol] 5.2 10*3/uL 4.4-11.0 [facility] Work Phone: Blood erythrocytes count (nu mber/volume)on 07-08-2021 RBC (Bld) [#/Vol] 5.28 10*6/uL 4.6-6.2 [facility] Work Phone: Blood hemoglobin measurement (mass/volume)on 07-08-2021 Hemoglobin (Bld) [Mass/Vol] 16.2 g/dL 13.0-16.5 [facility] Work Phone: Blood lymphocytes/100 leukoc yteson 07-08-2021 Lymphocytes/100 WBC (Bld) 32.7 % 19-41 [facility] Work Phone: Blood monocytes/100 leukocyt eson 07-08-2021 Monocytes/100 WBC (Bld) 10.0 % 0-10 [facility] Work Phone: Blood platelet mean volumeon 07-08-2021 Platelet mean volume (Bld) [Entitic vol] 10.6 fL 6.2-12.0 [facility] Work Phone: Determination of erythrocyte mean corpuscular volume (MCV)on 07-08-2021 MCV (RBC) [Entitic vol] 90.3 fL 80-94 [facility] Work Phone: Hematocrit Auto (Bld) [Volum e fraction]on 07-08-2021 Hematocrit (Bld) [Volume fraction] 47.7 % 40-54 [facility] Work Phone: Laboratory - Chemistry and C hemistry - challengeon 07-08-2021 ALP [Catalytic activity/Vol] 61 U/L 45-117 [facility] Work Phone: ALT [Catalytic activity/Vol] 23 U/L 16-61 [facility] Work Phone: CO2 [Moles/Vol] 26.0 mmol/L 21.0-32.0 [facility] Work Phone: Globulin (S) [Mass/Vol] 3.2 g/dL 2.2-4.2 [facility] Work Phone: Urea nitrogen/Creatinine [Mass ratio] 17.8 mg/mg 10-20 [facility] Work Phone: Laboratory - Hematology and Cell countson 07-08-2021 Erythrocyte distribution width (RBC) [Entitic vol] 41.7 fL 35.1-43.9 [facility] Work Phone: Erythrocyte distribution width (RBC) [Ratio] 12.7 % 11.6-14.6 [facility] Work Phone: Immature granulocytes/100 WBC (Bld) 0.200 % 0.0-0.9 [facility] Work Phone: Comment on above: IG% - Immature Granu locytes (promyelocytes, myelocytes and metamyelocytes) > 1% indicates that a LEFT SHIFT is Present. MCH (RBC) [Entitic mass] 30.7 pg 27.0-32.0 [facility] Work Phone: Nucleated RBC/100 WBC (Bld) [Ratio] 0 % 0-5 [facility] Work Phone: MCHC Auto (RBC) [Mass/Vol]on 07-08-2021 MCHC (RBC) [Mass/Vol] 34.0 g/dL 32-36 [facility] Work Phone: No Panel Informationon 07-08 Estimated GFR (MDRD) Amer 94 mL/min >60 [facility] Work Phone: Comment on above: GFR Calc Estimated GFR (MDRD) Non-Af Amer 78 mL/min >60 [facility] Work Phone: Comment on above: Non- GFR Calc Thyroid Stimulating Hormone (TSH) 1.43 uIU/mL 0.358-3.74 [facility] Work Phone: Platelets bldon 07-08-2021 Platelets (Bld) [#/Vol] 253 10*3/uL 150-450 [facility] Work Phone: Serum or plasma albumin daryl urement (mass/volume)on 07-08-2021 Albumin [Mass/Vol] 4.0 g/dL 3.2-5.0 [facility] Work Phone: Serum or plasma albumin/glob ulin mass ratioon 07-08-2021 Albumin/Globulin [Mass ratio] 1.2 {ratio} 0.9-2.4 [facility] Work Phone: Serum or plasma calcium daryl urement (mass/volume)on 07-08-2021 Calcium [Mass/Vol] 9.0 mg/dL 8.5-10.1 [facility] Work Phone: Serum or plasma cholesterol in HDL measurement (mass/volume)on 05-24-2022 Cholesterol in HDL [Mass/Vol] 51 mg/dL >40 [facility] Work Phone: Comment on above: The drugs N-Acetylcy steine and Metamizole may falsely depress this assay. Reference Range HDL <40 mg/dL Low HDL Cholesterol HDL >or= 60 mg/dL High HDL Cholesterol Serum or plasma cholesterol in VLDL measurement (mass/volume)on 07-08-2021 Cholesterol in VLDL [Mass/Vol] 24 mg/dL 5-40 [facility] Work Phone: Serum or plasma creatinine m easurement (mass/volume)on 07-08-2021 Creatinine [Mass/Vol] 1.07 mg/dL 0.70-1.30 [facility] Work Phone: Comment on above: The validity of the calculated GFR & GFRAA in patients over 70 years has not been determined. Clinical correlation is essential. Serum or plasma low density lipoprotein (LDL) cholesterol measurement (mass/volume)on 07-08-2021 Cholesterol in LDL [Mass/Vol] 77 mg/dL 0-130 [facility] Work Phone: Serum or plasma urea nitroge n measurement (mass/volume)on 07-08-2021 Urea nitrogen [Mass/Vol] 19 mg/dL 7-18 [facility] Work Phone: Thin prep Papanicolaou smear with manual screeningon 07-08-2021 Thin prep Papanicolaou smear with manual screening 19 U/L 15-37 [facility] Work Phone: Thin prep Papanicolaou smear with manual screening 6 5-15 [facility] Work Phone: Whole blood hemoglobin A1c/t otal hemoglobin ratio (mass fraction)on 07-08-2021 HbA1c (Bld) [Mass fraction] 5.5 % 3.8-5.6 [facility] Work Phone: Comment on above: Normal < 5.7 % Predi abetic 5.7 - 6.4 % Diabetic >or= 6.5 % Please note range changes. .GFRon 12-14-2019 GFR >60 Normal [facility] ([place]) Comment on above: Result Comment: GFR Population mean for , Non- Americans Ages 20-29 = 116 mL/min/1.73 sq.m. Ages 30-39 = 107 mL/min/1.73 sq.m. Ages 40-49 = 99 mL/min/1.73 sq.m. Ages 50-59 = 93 mL/min/1.73 sq.m. Ages 60-69 = 85 mL/min/1.73 sq.m. Ages 70+ = 75 mL/min/1.73 sq.m. Chronic Kidney Disease: Less than 60 mL/min/1.73 square meters End Stage Renal Disease: Less than 15 mL/min/1.73 square meters Performed By: #### C MP, GFR, LIPID #### [address] [address] GFR Non- >60 Normal [facility] ([place]) Comment on above: Result Comment: GFR Population mean for , Non- Americans Ages 20-29 = 116 mL/min/1.73 sq.m. Ages 30-39 = 107 mL/min/1.73 sq.m. Ages 40-49 = 99 mL/min/1.73 sq.m. Ages 50-59 = 93 mL/min/1.73 sq.m. Ages 60-69 = 85 mL/min/1.73 sq.m. Ages 70+ = 75 mL/min/1.73 sq.m. Chronic Kidney Disease: Less than 60 mL/min/1.73 square meters End Stage Renal Disease: Less than 15 mL/min/1.73 square meters Performed By: #### C MP, GFR, LIPID #### [address] [address] [facility] 12-14-2019 Albumin [Mass/Vol] 4.1 G/dL Normal 3.2-4.8 [facility] ([place]) Comment on above: Performed By: #### C MP, GFR, LIPID #### [address] [address] Albumin/Globulin [Mass ratio] 1.7 {ratio} High 0.9-1.6 [facility] ([place]) Comment on above: Performed By: #### C MP, GFR, LIPID #### [address] [address] ALP [Catalytic activity/Vol] 57 U/L Normal 38-126 [facility] ([place]) Comment on above: Performed By: #### C MP, GFR, LIPID #### [address] [address] ALT [Catalytic activity/Vol] 26 U/L Normal 12-55 [facility] ([place]) Comment on above: Performed By: #### C MP, GFR, LIPID #### [address] [address] AST [Catalytic activity/Vol] 27 U/L Normal 8-34 [facility] ([place]) Comment on above: Performed By: #### C MP, GFR, LIPID #### [address] [address] Bili Total 0.40 mg/dL Normal 0.20-1.20 [facility] ([place]) Comment on above: Result Comment: Use of this assay is not recommended for patients undergoing treatment with eltrombopag due to the potential for falsely elevated results. Performed By: #### C MP, GFR, LIPID #### [address] [address] Calcium [Mass/Vol] 8.9 mg/dL Normal 8.7-10.4 [facility] ([place]) Comment on above: Result Comment: No te - New Reference Range in effect 19 Performed By: #### C MP, GFR, LIPID #### [address] [address] Chloride [Moles/Vol] 108 mmol/L Normal 98-110 [facility] ([place]) Comment on above: Performed By: #### C MP, GFR, LIPID #### [address] [address] CO2 [Moles/Vol] 26 mmol/L Normal 22-32 [facility] ([place]) Comment on above: Performed By: #### C MP, GFR, LIPID #### [address] [address] Creatinine [Mass/Vol] 0.92 mg/dL Normal 0.60-1.40 [facility] ([place]) Comment on above: Performed By: #### C MP, GFR, LIPID #### [address] [address] Electrolyte Balance 5.0 mEq/L Normal 4.0-15.0 [facility] ([place]) Comment on above: Performed By: #### C MP, GFR, LIPID #### [address] [address] Globulin (S) [Mass/Vol] 2.4 G/dL Normal 1.5-3.8 [facility] ([place]) Comment on above: Performed By: #### C MP, GFR, LIPID #### [address] [address] Glucose [Mass/Vol] 118 mg/dL High 70-110 [facility] ([place]) Comment on above: Performed By: #### C MP, GFR, LIPID #### [address] [address] Potassium [Moles/Vol] 3.8 mmol/L Normal 3.5-5.0 [facility] ([place]) Comment on above: Result Comment: Spec imen slightly hemolyzed. Performed By: #### C MP, GFR, LIPID #### [address] [address] Protein [Mass/Vol] 6.5 G/dL Normal 5.7-8.2 [facility] ([place]) Comment on above: Result Comment: No te - New Reference Range in effect 19 Performed By: #### C MP, GFR, LIPID #### [address] [address] Sodium [Moles/Vol] 139 mmol/L Normal 136-145 [facility] ([place]) Comment on above: Performed By: #### C MP, GFR, LIPID #### [address] [address] Urea nitrogen [Mass/Vol] 19.0 mg/dL Normal 8.0-22.0 [facility] ([place]) Comment on above: Performed By: #### C MP, GFR, LIPID #### [address] [address] Urea nitrogen/Creatinine [Mass ratio] 20.7 ratio Normal 10.0-22.0 [facility] ([place]) Comment on above: Performed By: #### C MP, GFR, LIPID #### [address] [address] LIPIDon 12-14-2019 Cholesterol [Mass/Vol] 169 mg/dL Normal 50-199 [facility] ([place]) Comment on above: Result Comment: Chol esterol Reference Interval: Less than 200 Desirable 200-239 Borderline high risk 240 and above High risk Performed By: #### C MP, GFR, LIPID #### [address] [address] Cholesterol in HDL [Mass/Vol] 53 mg/dL Normal 40-59 [facility] ([place]) Comment on above: Performed By: #### C MP, GFR, LIPID #### [address] [address] Cholesterol in LDL [Mass/Vol] 100 mg/dL Normal 0-129 [facility] ([place]) Comment on above: Performed By: #### C MP, GFR, LIPID #### [address] [address] Triglyceride [Mass/Vol] 82 mg/dL Normal 3-149 [facility] ([place]) Comment on above: Performed By: #### C MP, GFR, LIPID #### [address] [address] Vital Signs Date Time Vital Sign Value Performing Clinician Faci lity 12-22-2022 03:15-0500 Diastolic blood pressure 84 mm[Hg] [facility] 12-22-2022 03:15-0500 Heart rate 92 /min [facility] 12-22-2022 03:15-0500 Respiratory rate 16 /min [facility] 12-22-2022 03:15-0500 SaO2% (BldA) [Mass fraction] 98 % [facility] 12-22-2022 03:15-0500 Systolic blood pressure 133 mm[Hg] [facility] 12-22-2022 01:16-0500 Body height 165.1 cm [facility] 12-22-2022 01:16-0500 Body mass index (BMI) [Ratio] 29.5 kg/m2 [facility] 12-22-2022 01:16-0500 Body temperature 96.3 [degF] [facility] 12-22-2022 01:16-0500 Body weight 80.5 kg [facility] 09-09-2021 08:55-0400 Body temperature 98.3 [degF] Dr. Kris Burnham Work Phone: [facility] Work Phone: 09-09-2021 08:55-0400 Diastolic blood pressure 76 mm[Hg] Dr. Kris Burnham Work Phone: [facility] Work Phone: 09-09-2021 08:55-0400 Heart rate 71 /min Dr. Kris Burnham Work Phone: [facility] Work Phone: 09-09-2021 08:55-0400 Respiratory rate 14 /min Dr. Kris Burnham Work Phone: [facility] Work Phone: 09-09-2021 08:55-0400 SaO2% (BldA) [Mass fraction] 96 % Dr. Kris Burnham Work Phone: [facility] Work Phone: 09-09-2021 08:55-0400 Systolic blood pressure 108 mm[Hg] Dr. Kris Burnham Work Phone: [facility] Work Phone: 09-09-2021 07:25-0400 Body height 165.[address] Kris Burnham Work Phone: [facility] Work Phone: 09-09-2021 07:25-0400 Body mass index (BMI) [Ratio] 27.9 kg/m2 Dr. Kris Burnham Work Phone: [facility] Work Phone: 09-09-2021 07:25-0400 Body weight 76.[address] Kris Burnham Work Phone: [facility] Work Phone: 07-22-2021 14:23-0400 Body mass index (BMI) [Ratio] 28.3 kg/m2 Dr. Kris Burnham Work Phone: [facility] Work Phone: 07-22-2021 14:23-0400 Body weight 77.[address] Kris Burnham Work Phone: [facility] Work Phone: Encounters Encounter Date Encounter Type Care Provider Facility Start: 01-22-2024 End: 01-22-2024 [facility]ulatory [facility] Facility:[facility] Start: 01-11-2024 End: 01-11-2024 ambulatory [facility] Start: 10-07-2023 End: 10-07-[address] [facility] Facility:[facility] Start: 08-02-2023 Encounter for genera l adult medical examination without abnormal findings Kris Burnham [facility] Start: 07-30-2023 End: 07-30-2023 ambulatory [facility] Start: 07-27-2023 End: 07-27-2023 ambulatory [facility] Start: 12-25-2022 End: 12-25-2022 ambulatory [facility] Work Phone: Start: 12-25-2022 End: 12-25-2022 Patient encounter procedure [facility] [place] Work Phone: Start: 12-22-2022 End: 12-22-2022 Emergency department patient visit [facility] Work Phone: Start: 09-09-2021 Non-patient / Non-visit Dr. Sayda Burnham Work Phone: [facility] Start: 09-09-2021 End: 09-09-2021 Admission to same day surgery center Dr. Kris Burnham Work Phone: [facility]Endoscopy Start: 07-22-2021 Non-patient / Non-visit Dr. Sayda Burnham Work Phone: [facility] Start: 07-08-2021 End: 07-08-2021 Patient encounter procedure [facility] [place] Start: 10-04-2018 Encounter for genera l adult medical examination without abnormal findings [facility] Start: 10-04-2018 End: 10-04-2018 Patient encounter procedure [facility] Encounter for genera l adult medical examination without abnormal findings [facility] Procedures Date Procedure Procedure Detail Performing Clinician Start: 12-25-2022 Diagnostic radiograp hy of abdomen Start: 12-22-2022 Urine culture Start: 12-22-2022 CT of abdomen and pe lvis without contrast Start: 09-09-[address] Kris kunz Work Phone: Plan of Treatment Date Care Activity Detail Author Start: 12-22-2022 [facility] Start: 09-09-2021 Patient discharge [facility] Work Phone: Colonoscopy [facility] Work Phone: Patient Education Understanding Kidney Stones ED Kidney Stone w/ Colic [facility] Work Phone: Patient referral [facility] Work Phone: Payers Date Payer Category Payer Self-pay [id number] 2023 Unknown [id number] Unknown [id number] Unknown [id number] Unknown [id number] [id number] Unknown [id number] [id number] Unknown [id number] [id number] [id number] Social History Date Type Detail Facility Tobacco smoking stat us NDIS Unknown if ever smoked [facility] Work Phone: Start: 1970 Sex Assigned At Male [facility] Start: 09-04-2021 End: 12-22-2022 Tobacco smoking status NHIS Unknown if ever smoked [facility] Goals Date Patient Goal Desired Activity /State Mental Status Date Assessment Result Facility 09-09-2021 Cognitive function Voice/Name [facility] Work Phone: 09-09-2021 Cognitive function Patient Orien tation Person;Place;Time [facility] Work Phone: Evaluation note Note Date & Type Note Facility Evaluation note No assessment information availa ble [facility] Work Phone: Evaluation note Note Date & Type Note Facility Evaluation note Diagnosis Onset Date Encounter for screening for malignant neoplasm of colon acute [facility] Work Phone: Summary Purpose Family History No Family History Records Found Relationship Condition Age at Onset Recorded Date/T paulina mother Hypertension Unknown Advance Directives No Advanced Directives Records Found Advance Directive Response Recorded Date/ Time Living Will No September 04, 2021 12:23pm Power of Semiautomatic Taper Operator No September 04 12:23pm Advance Directive Response Recorded Date/ Time Living Will Yes December 22 1:19am Power of Semiautomatic Taper Operator Yes December 22, 2022 1:19am Name of Medical Power of Semiautomatic Taper Operator [place]- spouse December 22, 2022 1:19am Chief Complaint and Reason for Visit Chief Complaint Amb Documentation Reason for Visit Encounter for screen ing for malignant neoplasm of colon Chief Complaint RIGHT FLANK PAIN KIDNEY STONE Additional Source Comments (unrecognized sect ion and content) No Status Records FoundNo Status Records FoundNo Status Records Found INFORMATION SOURCE (unrecogn ized section and content) DATE CREATED AUTHOR 11/03/2018 [facility] DATE CREATED AUTHOR AUTHOR'S ORGANIZ ATION 12/14/2019 [facility] ([place] DATE CREATED AUTHOR AUTHOR'S ORGANIZ ATION 02/28/2024 [facility] Goals (unrecognized section and content) Goals may be documented in a n alternate sectionGoals may be documented in an alternate section Care Teams (unrecognized sec tion and content) Team Status: Active Member Role Status Dates Dr. Kris Burnham MD Primary Care Provider Active Team Status: Inactive Member Role Status Dates Dr. Kris Burnham MD Primary Care Provider Active Dr. Florentin Head DO Attending Provider, Emergency Provide r Active Team Status: Inactive Member Role Status Dates Dr. Kris Burnham MD Primary Care Provider Active Dr. Jeff Morris MD Attending Provider, Referring Pr ovider Active FOR RECORDS PERTAINING TO PATIENTS WHO ARE OR HAVE BEEN ENROLLED IN A CHEMICAL DEPENDENCY/SUBSTANCEABUSE PROGRAM, SOME INFORMATION MAY BE OMITTED. This clinical summary was aggregated from multiple sources. Caution should be exercised in using it in the provision of clinical care. This summary normalizes information from multiple sources, and as a consequence, information in this document may materially change the coding, format and clinical context of patient data. In addition, data may be omitted in some cases. CLINICAL DECISIONS SHOULD BE BASED ON THE PRIMARY CLINICAL RECORDS. [facility] [employer] [facility]. provides no warranty or guarantee of the accuracy or completeness of information in this document.
== END | disposition home or self-care (01) ==
LOC: MFPLAB 16:33
PROVIDERS: PCP Family Medicine; Referring Provider Family Medicine; Visit Provider Family Medicine
DX: K76.0 Fatty (change of) liver, not elsewhere classified (principal); Z12.5 Encounter for screening for malignant neoplasm of prostate
CPT/HCPCS: 36415; 80053; 84153; 85025; G0103

== ENCOUNTER → 2025-01-30 | Outpatient (CLI) | payer OTHER, SELFPAY ==
[2025-01-30 17:49] LABS: Hematocrit 46.3 % (40-54); Hemoglobin 16.1 g/dL (13.0-16.5); Immature Granulocytes Count 0.010 X10^3/uL (0.0-0.0); Mean Corp Hgb Conc 34.8 g/dL (32-36); Mean Corpuscular Volume 89.0 fL (80-94); Mean Platelet Vol. 10.0 fl (6.2-12.0); NRBC Flagged by Analyzer 0 % (0-5); Platelet Count 282 K/mm3 (150-450); RBC Distribution Width CV 13.0 % (11.6-14.6); RBC Distribution Width SD 42.3 fl (35.1-43.9); Red Blood Count 5.20 M/mm3 (4.6-6.2); White Blood Count 7.3 K/mm3 (4.4-11.0)
[2025-01-30 18:03] LABS: AST(SGOT) 22 U/L (<=37); Alanine Aminotransfer ALT/SGPT 13 U/L (<=46); Albumin, Serum 4.7 g/dL (3.5-5.0); Alkaline Phosphatase 56 U/L (40-129); Anion Gap 12 (5-15); BUN 20 mg/dL (4-19); BUN/Creat Ratio 20.8 RATIO (10-20); Calcium,Total 9.7 mg/dL (7.6-11.0); Carbon Dioxide 24.8 mmol/L (21.0-32.0); Chloride 103 mmol/L (98-108); Cholesterol 172 mg/dL (<=200); Globulin 2.8 g/dL (2.2-4.2); Glucose 87 mg/dL (70-99); Low Density Lipoprotein Calc. 99 mg/dL; Potassium 3.9 mmol/L (3.3-5.1); Triglycerides 50 mg/dL; Very Low Density Lipoprotein 10 mg/dL (5-40); cholesterol:hdl ratio screen 2.75
== END | disposition home or self-care (01) ==
LOC: MTLAB 16:30
PROVIDERS: PCP Family Medicine; Referring Provider Family Medicine; Visit Provider Family Medicine
DX: K76.0 Fatty (change of) liver, not elsewhere classified (principal)
CPT/HCPCS: 36415; 80053; 80061; 85025